=== PATIENT | female | born 1935 | race Caucasian/White ===

== ENCOUNTER → 2017-03-14 | Outpatient (CLI) | payer MEDICARE ==
[2017-03-14 16:11] LABS: HEMATOCRIT 37.5 % (36.0-47.0); HGB HCT DIFFERENCE 1.5; MEAN CORPUSCULAR HEMOGLOBIN 30.6 pg (27.0-33.4); MEAN CORPUSCULAR HGB CONC 34.6 g/dL (32.0-36.0); MEAN CORPUSCULAR VOLUME 89 fl (80-97); RED BLOOD COUNT 4.24 10^6/uL (3.72-5.28); RED CELL DISTRIBUTION WIDTH 13.6 % (11.5-14.0); WHITE BLOOD COUNT 8.2 10^3/uL (4.0-10.5)
== END ==
LOC: OD 14:59
PROVIDERS: ATTEND Specialist
DX: D50.9 Iron deficiency anemia, unspecified (principal); R97.0 Elevated carcinoembryonic antigen [CEA]; R10.9 Unspecified abdominal pain; C25.0 Malignant neoplasm of head of pancreas
CPT/HCPCS: 36415; 82378; 85027

== ENCOUNTER 2017-03-23 09:10 | Day surgery (SDC) | payer MEDICARE ==
--- NOTE | 2017-03-21 14:37 | HISTORY AND PHYSICAL E ---
History and Physical NAME: MARQUIS RIZO : 1935 AGE: 81Y ADMITTED: 03/23/2017 ROOM: The patient presented regarding rectal bleeding, scheduled for colonoscopy. The patient is being followed by [facility]. PAST MEDICAL HISTORY: She has the following problem. She does have a history of adenoma of polyp, allergic rhinitis, ureter calculi, chronic pain, constipation, dementia of old age, reflux, peripheral neuropathy, osteoarthritis. The patient did have solitary pulmonary nodule, history of acute gastric ulcer, H. pylori, diarrhea, mass of the bladder. PAST SURGICAL HISTORY: Cholecystectomy, appendectomy. FAMILY HISTORY: Colon cancer, brain cancer, breast cancer. Brother has Alzheimer's. REVIEW OF SYSTEMS: CONSTITUTIONAL: No fever, no chills. Dictation ends here DICTATING PHYSICIAN: GEORGE GORDILLO M.D. [id number] [id number] PHY#: [id number] ID: [id number] JOB#: [id number] ACCT: [id number] cc:GEORGE GORDILLO M.D. >
--- NOTE | 2017-03-21 14:38 | HISTORY AND PHYSICAL E ---
History and Physical NAME: MARQUIS RIZO : 1935 AGE: 81Y ADMITTED: 03/23/2017 ROOM: REASON FOR ADMISSION: Colonoscopy. HISTORY OF PRESENT ILLNESS: The patient presents with rectal bleeding. Again, patient has multiple medical problems. She is a former smoker. Patient has a history of adenomatous polyp and GI bleed. She did have a Ct scan done in January of this year that showed a left ureteral stent. She did have decreased left-sided hydronephrosis. The patient presented for colon exam and rectal bleeding. I saw her on 03/14, an 81-year-old female with rectal bleeding. PAST MEDICAL HISTORY: *------*, kidney stones, appendectomy. MEDICATIONS: 1. Thyroid. 2. Vitamins. 3. MiraLax. SOCIAL HISTORY: The patient is . REVIEW OF SYSTEMS: CARDIAC: Negative. PULMONARY: Nodule. GASTROINTESTINAL: Reflux, colon polyps. NEUROLOGIC: Peripheral neuropathy. FAMILY HISTORY: Her father of old age, cardiac disease and accident. Her mom had colon cancer. PHYSICAL EXAMINATION: GENERAL: This is an elderly female, pleasant. VITAL SIGNS: Blood pressure 120/70, pulse 70, temp is 98. HEAD, EYES, EARS, NOSE AND THROAT: Normal. ABDOMEN: Soft. NEUROLOGIC: Negative. EXTREMITIES: Patient has peripheral neuropathy and arthritis. CONCLUSION: Rectal bleeding. PLAN: Colonoscopy. Admit to our service. DICTATING PHYSICIAN: GEORGE GORDILLO M.D. [id number] PHY#: [id number] ID: [id number] JOB#: [id number] ACCT: [id number] cc:GEORGE GORDILLO M.D. >
[2017-03-23] MEDS ORDERED: ONDANSETRON HCL INJ/PF 4 MG/2 ML SDV ONE (09:49)
[2017-03-23] MEDS ORDERED: GLYCOPYRROLATE INJ 0.4 MG/2 ML VIAL ONE (09:49)
[2017-03-23] MEDS ORDERED: GLUCAGON,HUMAN RECOMB 1 MG INJ ONE (09:50)
[2017-03-23] MEDS ORDERED: EPINEPHRINE INJ 1 MG/10 ML DISP.SYRIN ONE (09:50)
[2017-03-23] MEDS ORDERED: NALOXONE HCL INJ/PF 0.4 MG/1 ML SDV ONE (09:50)
[2017-03-23] MEDS ORDERED: FLUMAZENIL INJ 0.5 MG/5 ML VIAL ONE (09:50)
[2017-03-23] MEDS: MIDAZOLAM 2 MG/2 ML INJ ONE ×3 (10:28→10:46)
[2017-03-23] MEDS: FENTANYL CITRATE INJ/PF 100 MCG/2 ML AMPUL ONE ×3 (10:30→10:38)
[2017-03-23] MEDS ORDERED: SIMETHICONE 80 MG TAB.CHEW ONE (11:50)
[2017-03-23 12:17] LABS: ABSOLUTE EOSINOPHILS # (AUTO) 0.1 10^3/uL (0.0-0.6); ABSOLUTE LYMPHOCYTES (AUTO) 1.4 10^3/uL (0.5-4.7); ABSOLUTE MONOCYTES (AUTO) 0.9 10^3/uL (0.1-1.4); ABSOLUTE NEUT (AUTO) 7.1 10^3/uL (1.7-8.2); BASOPHILS % (AUTO) 0.4 % (0-2); EOSINOPHILS % (AUTO) 0.8 % (0-6); HEMATOCRIT 34.9 % (36.0-47.0); HEMOGLOBIN 12.3 g/dL (12.0-15.5); LYMPHOCYTES % (AUTO) 14.7 % (13-45); MEAN CORPUSCULAR HEMOGLOBIN 31.4 pg (27.0-33.4); MEAN CORPUSCULAR HGB CONC 35.2 g/dL (32.0-36.0); MEAN CORPUSCULAR VOLUME 89 fl (80-97); MONOCYTES % (AUTO) 9.7 % (3-13); RED BLOOD COUNT 3.91 10^6/uL (3.72-5.28); RED CELL DISTRIBUTION WIDTH 13.7 % (11.5-14.0); SEGMENTED NEUTROPHILS % (AUTO) 74.4 % (42-78); WHITE BLOOD COUNT 9.5 10^3/uL (4.0-10.5)
[2017-03-23 12:28] LABS: IRON 43.2 ug/dL (37-170)
[2017-03-23 13:48] VITALS: BP 133/57
--- NOTE | 2017-03-23 14:25 | DISCHARGE SUMMARY E ---
Discharge Summary NAME: MARQUIS RIZO : 1935 AGE: 81Y ADMITTED: 03/23/2017 DISCHARGED: 03/23/2017 PROCEDURE: Colonoscopy to the cecum. HISTORY AND HOSPITAL COURSE: Patient is 81 and presented with rectal bleeding, multiple medical problems. Underwent colonoscopy today, which shows no evidence of polyps, no bleeding, mild external hemorrhoids. DISCHARGE PLAN: Lab studies. Full liquid diet, advance to bland. No need for followup colonoscopy, except if absolutely clinically indicated. No need for further screening. DICTATING PHYSICIAN: GEORGE GORDILLO M.D. [id number] PHY#: [id number] ID: [id number] JOB#: [id number] ACCT: [id number] cc:GEORGE GORDILLO M.D. >
--- NOTE | 2017-03-23 14:26 | OPERATIVE REPORT E ---
Operative Report NAME: MARQUIS RIZO : 1935 AGE: 81Y DATE OF SURGERY: 03/23/2017 ROOM: PREOPERATIVE DIAGNOSIS: Rectal bleeding. POSTOPERATIVE DIAGNOSIS: External hemorrhoids. Redundant colon. No active bleeding. PROCEDURE: Colonoscopy. SURGEON: GEORGE GORDILLO M.D. ANESTHESIA: Versed 2 mg and Fentanyl 50 mcg. TISSUE REMOVED OR ALTERED: None. DESCRIPTION OF PROCEDURE: Rectal exam: External hemorrhoids, most likely the source of the bleeding. Rectum otherwise normal. Sigmoid very redundant, tortuous, normal. Descending colon normal. Transverse colon tortuous, normal. Ascending colon normal. Cecum normal. No blood. No stool. Very redundant colon. Scope withdrawn cecum, ascending, transverse, descending, sigmoid all the way to the rectum. CONCLUSIONS: No polyps, no cancer, no diverticula. Mild external hemorrhoids. Very redundant colon. Difficult colonoscopy. PLAN: Consider colonoscopy only if absolutely needed with definite clinical indication, otherwise no need for further colonoscopy. The patient is to have CBC. We will keep her on a full liquid diet for a few hours and then advance to soft, low residue. DICTATING PHYSICIAN: GEORGE GORDILLO M.D. [id number] [id number] PHY#: [id number] ID: [id number] JOB#: [id number] ACCT: [id number] cc:GEORGE GORDILLO M.D. >
== END 2017-03-23 12:05 | disposition home or self-care (01) ==
LOC: END 09:10
PROVIDERS: ATTEND Specialist
PROC: 0DJD8ZZ Inspection of Lower Intestinal Tract, Via Natural or Artificial Opening Endoscopic (ICD-10-PCS; principal; 2017-03-23 10:00)
DX: K62.5 Hemorrhage of anus and rectum (principal); K64.4 Residual hemorrhoidal skin tags; Q43.8 Other specified congenital malformations of intestine; Z90.49 Acquired absence of other specified parts of digestive tract; Z80.0 Family history of malignant neoplasm of digestive organs; Z86.010 Personal history of colon polyps; F03.90 Unspecified dementia, unspecified severity, without behavioral disturbance, psychotic disturbance, mood disturbance, and anxiety; M19.90 Unspecified osteoarthritis, unspecified site; G62.9 Polyneuropathy, unspecified
CPT/HCPCS: 45378; 36415; 82607; 83540; 85025; J2250; J3010; J1610; A9270; J2405; G0121; J0171; J2310; J3490

== ENCOUNTER 2017-12-27 11:33 | Emergency (ER) | payer MEDICARE, OTHER ==
[2017-12-27 12:24] LABS: APPEARANCE,URINE TURBID; BILIRUBIN,URINE NEGATIVE (NEGATIVE); COLOR,URINE YELLOW; GLUCOSE, URINE NEGATIVE (NEGATIVE); KETONES,URINE NEGATIVE (NEGATIVE); LEUKOCYTE ESTERASE,URINE LARGE (NEGATIVE); NITRITE,URINE NEGATIVE (NEGATIVE); PROTEIN,URINE 30 mg/dL (NEGATIVE); URINE SPECIFIC GRAVITY 1.015; UROBILINOGEN,URINE NEGATIVE mg/dL (<2.0)
[2017-12-27] MEDS ORDERED: NITROFURANTOIN MONOHYD/M-CRYST 100 MG CAPSULE PO ONE (12:34)
--- NOTE | 2017-12-27 12:39 | ER Document Report ---
ED Medical Screen (RME) - General Chief Complaint: Urinary Problem Stated Complaint: PAINFUL URINATION Time Seen by Provider: 12/27/17 12:12 Mode of Arrival: Ambulatory Information source: Patient Notes: Patient complains of burning sensation during urination. TRAVEL OUTSIDE OF THE [place] IN LAST 30 DAYS: No - HPI Onset: Just prior to arrival Onset/Duration: Sudden Quality of pain: No pain Pain Level: 0 Associated Symptoms: Dysuria Exacerbated by: Denies Relieved by: Denies Recently seen / treated by doctor: No - Related Data Frequency of alcohol use: None Drug Abuse: None Allergies/Adverse Reactions: codeine [Codeine] Allergy (Mild, Verified 12/27/17 11:37) lightheaded Past Medical History - Past Medical History Cardiac Medical History: Denies: Hx Coronary Artery Disease, Hx Heart Attack, Hx Hypertension Pulmonary Medical History: Denies: Hx Asthma, Hx Bronchitis, Hx COPD, Hx Pneumonia Neurological Medical History: Denies: Hx Cerebrovascular Accident, Hx Seizures Endocrine Medical History: Reports: Hx Hypothyroidism Renal/ Medical History: Reports: Hx Kidney Stones. Denies: Hx Peritoneal Dialysis GI Medical History: Denies: Hx Hepatitis, Hx Hiatal Hernia, Hx Ulcer Musculoskeltal Medical History: Reports Hx Arthritis Infectious Medical History: Denies: Hx Hepatitis Past Surgical History: Reports: Hx Appendectomy, Hx Cholecystectomy. Denies: Hx Hysterectomy, Hx Mastectomy, Hx Open Heart Surgery, Hx Pacemaker - Immunizations Hx Diphtheria, Pertussis, Tetanus Vaccination: Yes Influenza Administration Date for 01/2017 - 06/2017 Season: 03/17/17 Review of Systems - Review of Systems Constitutional: denies: Chills, Fever EENT: No symptoms reported Cardiovascular: No symptoms reported Respiratory: denies: Cough, Short of breath Gastrointestinal: No symptoms reported. denies: Abdomen distended, Abdominal pain, Diarrhea, Nausea, Vomiting Genitourinary: No symptoms reported. denies: Burning, Dysuria Female Genitourinary: No symptoms reported. denies: Last menstrual period Musculoskeletal: denies: No symptoms reported, Back pain, Gout, Joint pain Skin: No symptoms reported. denies: Change in color, Change in hair/nails Hematologic/Lymphatic: No symptoms reported Neurological/Psychological: No symptoms reported. denies: Confusion, Dementia, Depression, Anxiety -: Yes All other systems reviewed and negative Physical Exam - Vital signs Vitals: Temp Pulse Resp BP Pulse Ox 97.3 F 72 16 137/57 H 96 12/27/17 11:41 12/27/17 11:41 12/27/17 11:41 12/27/17 11:41 12/27/17 11:41 - General General appearance: Appears well, Alert In distress: None - HEENT Head: Normocephalic, Atraumatic Eyes: Normal Pupils: PERRL - Respiratory Respiratory status: No respiratory distress Chest status: Nontender Breath sounds: Normal Chest palpation: Normal - Cardiovascular Rhythm: Regular Heart sounds: Normal auscultation Murmur: No - Abdominal Inspection: Normal Distension: No distension Bowel sounds: Normal Tenderness: Nontender Organomegaly: No organomegaly - Back Back: Normal, Nontender - Extremities General upper extremity: Normal inspection, Nontender, Normal color, Normal ROM , Normal temperature General lower extremity: Normal inspection, Nontender, Normal color, Normal ROM , Normal temperature, Normal weight bearing. No: Cleveland's sign - Neurological Neuro grossly intact: Yes Cognition: Normal Orientation: AAOx4 [place] Coma Scale Eye Opening: Spontaneous Angus Coma Scale Verbal: Oriented Angus Coma Scale Motor: Obeys Commands [place] Coma Scale Total: 15 Speech: Normal Motor strength normal: LUE, RUE, LLE, RLE Sensory: Normal - Psychological Associated symptoms: Normal affect, Normal mood - Skin Skin Temperature: Warm Skin Moisture: Dry Skin Color: Normal Course - Vital Signs Vital signs: Temp Pulse Resp BP Pulse Ox 97.3 F 72 16 137/57 H 96 12/27/17 11:41 12/27/17 11:41 12/27/17 11:41 12/27/17 11:41 12/27/17 11:41 - Laboratory Laboratory results interpreted by me: 12/27/17 12:10 Urine Protein 30 H Urine Blood LARGE H Ur Leukocyte Esterase LARGE H Urine Ascorbic Acid 20 H - Transfer of Care Notes: 12/27/17 12:51 Urinary tract infection. Doctor's Discharge - Discharge Clinical Impression: UTI (urinary tract infection) Qualifiers: Urinary tract infection type: acute cystitis Hematuria presence: with hematuria Qualified Code(s): N30.01 - Acute cystitis with hematuria Condition: Stable Disposition: HOME, SELF-CARE Additional Instructions: Please follow-up with your primary doctor tomorrow morning. Return to the emergency room if her condition worsens. Prescriptions: Nitrofurantoin Monohyd/M-Cryst [Macrobid 100 mg Capsule] 100 mg PO BID #20 capsule Ondansetron [Zofran Odt 4 mg Tablet] 1 tab PO Q8H PRN #15 tab.rapdis PRN Reason: For Nausea/Vomiting Referrals: ELIZABETH SHIELDS MD [ACTIVE STAFF] - Follow up as needed
[2017-12-27] MEDS ORDERED: PHENAZOPYRIDINE HCL 100 MG TABLET PO ONE (13:06)
[2017-12-27 13:15] VITALS: BP 135/57
== END 2017-12-27 13:11 | disposition home or self-care (01) ==
LOC: ER 11:33
DX: N39.0 Urinary tract infection, site not specified (principal)
CPT/HCPCS: 99283; 81001; A9270 ×2; J3490; J8499

== ENCOUNTER 2018-01-17 09:50 | Emergency (ER) | payer MEDICARE ==
[2018-01-17 09:57] VITALS: BP 175/69
[2018-01-17 12:25] LABS: ABSOLUTE BASOPHILS # (AUTO) 0.1 10^3/uL (0.0-0.2); ABSOLUTE EOSINOPHILS # (AUTO) 0.1 10^3/uL (0.0-0.6); ABSOLUTE LYMPHOCYTES (AUTO) 2.2 10^3/uL (0.5-4.7); ABSOLUTE MONOCYTES (AUTO) 1.2 10^3/uL (0.1-1.4); ABSOLUTE NEUT (AUTO) 7.3 10^3/uL (1.7-8.2); BASOPHILS % (AUTO) 0.6 % (0-2); EOSINOPHILS % (AUTO) 0.6 % (0-6); HEMATOCRIT 41.2 % (36.0-47.0); HEMOGLOBIN 14.1 g/dL (12.0-15.5); LYMPHOCYTES % (AUTO) 20.1 % (13-45); MEAN CORPUSCULAR HEMOGLOBIN 30.6 pg (27.0-33.4); MEAN CORPUSCULAR HGB CONC 34.1 g/dL (32.0-36.0); MEAN CORPUSCULAR VOLUME 90 fl (80-97); MONOCYTES % (AUTO) 10.9 % (3-13); PLATELET COUNT 254 10^3/uL (150-450); RED BLOOD COUNT 4.59 10^6/uL (3.72-5.28); RED CELL DISTRIBUTION WIDTH 13.3 % (11.5-14.0); SEGMENTED NEUTROPHILS % (AUTO) 67.8 % (42-78); TOTAL CELLS COUNTED % (AUTO) 100 %; WHITE BLOOD COUNT 10.8 10^3/uL (4.0-10.5)
[2018-01-17 12:37] LABS: ALANINE AMINOTRANSFERASE 19 U/L (9-52); ALBUMIN 4.2 g/dL (3.5-5.0); ALKALINE PHOSPHATASE 58 U/L (38-126); ANION GAP 10 (5-19); ASPARTATE AMINO TRANSFERASE 23 U/L (14-36); BILIRUBIN,DIRECT 0.4 mg/dL (0.0-0.4); BILIRUBIN,TOTAL 0.6 mg/dL (0.2-1.3); BLOOD UREA NITROGEN 14 mg/dL (7-20); CALCIUM 9.6 mg/dL (8.4-10.2); CARBON DIOXIDE 26 mmol/L (22-30); CHLORIDE 103 mmol/L (98-107); GLUCOSE 131 mg/dL (75-110); POTASSIUM 3.8 mmol/L (3.6-5.0); SODIUM 139.1 mmol/L (137-145)
--- NOTE | 2018-01-17 12:37 | ER Document Report ---
ED General <REGIS ALICIA - Last Filed: 01/17/18 16:20> - General Mode of Arrival: Ambulatory Information source: Patient, Relative TRAVEL OUTSIDE OF THE [place] IN LAST 30 DAYS: No <TREMAYNE PETTY - Last Filed: 01/17/18 16:37> - General Chief Complaint: Psych Problem Stated Complaint: PSYCH PROBLEM Time Seen by Provider: 01/17/18 10:17 Notes: Patient is an 82-year-old female who presents to the emergency department with family complaints of depression. Patient reports that she lives at her son's house in the basement and that there are a lot of family issues. 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 Patient's at bedside reports that patient continues to have angry outbursts and verbally cries out. Patient made a statement this morning of "I want to " according to her . Patient reports that her and her have a good relationship however living with her son has been toxic. Patient denies any suicidal or homicidal ideations. Patient denies any history of diagnosed anxiety, depression or any other psychiatric disorder. Patient has medical history positive for recurrent UTIs, cellulitis, chronic back pain as well as a lithotripsy done for kidney stones. (TREMAYNE PETTY) - Related Data Allergies/Adverse Reactions: codeine [Codeine] Allergy (Mild, Verified 12/27/17 11:37) lightheaded Past Medical History - Social History Smoking Status: Unknown if Ever Smoked Family History: Reviewed & Not Pertinent Patient has suicidal ideation: No Patient has homicidal ideation: No - Past Medical History Cardiac Medical History: Denies: Hx Coronary Artery Disease, Hx Heart Attack, Hx Hypertension Pulmonary Medical History: Denies: Hx Asthma, Hx Bronchitis, Hx COPD, Hx Pneumonia Neurological Medical History: Denies: Hx Cerebrovascular Accident, Hx Seizures Endocrine Medical History: Reports: Hx Hypothyroidism Renal/ Medical History: Reports: Hx Kidney Stones. Denies: Hx Peritoneal Dialysis GI Medical History: Denies: Hx Hepatitis, Hx Hiatal Hernia, Hx Ulcer Musculoskeletal Medical History: Reports Hx Arthritis Infectious Medical History: Denies: Hx Hepatitis Past Surgical History: Reports: Hx Appendectomy, Hx Cholecystectomy. Denies: Hx Hysterectomy, Hx Mastectomy, Hx Open Heart Surgery, Hx Pacemaker - Immunizations Hx Diphtheria, Pertussis, Tetanus Vaccination: Yes <TREMAYNE PETTY - Last Filed: 01/17/18 16:37> Physical Exam <REGIS ALICIA - Last Filed: 01/17/18 16:20> <TREMAYNE PETTY - Last Filed: 01/17/18 16:37> - Vital signs Vitals: Temp Pulse Resp BP Pulse Ox 97.7 F 72 16 175/69 H 100 01/17/18 09:57 01/17/18 09:57 01/17/18 09:57 01/17/18 09:57 01/17/18 09:57 - Notes Notes: PHYSICAL EXAMINATION: GENERAL: Well-appearing, well-nourished and in no acute distress. HEAD: Atraumatic, normocephalic. EYES: Pupils equal round and reactive to light, extraocular movements intact, conjunctiva are normal. ENT: Nares patent, oropharynx clear without exudates. Moist mucous membranes. NECK: Normal range of motion, supple without lymphadenopathy LUNGS: Breath sounds clear to auscultation bilaterally and equal. No wheezes rales or rhonchi. HEART: Regular rate and rhythm without murmurs ABDOMEN: Soft, nontender, nondistended abdomen. No guarding, no rebound. No masses appreciated. Female : No CVA tenderness Musculoskeletal: Normal range of motion, no pitting or edema. No cyanosis. NEUROLOGICAL: Cranial nerves grossly intact. Normal speech, normal gait. Normal sensory, motor exams PSYCH: Normal mood, normal affect. SKIN: Warm, Dry, normal turgor, no rashes or lesions noted. (TREMAYNE PETTY) Course - Laboratory Result Diagrams: 01/17/18 10:22 01/17/18 10:22 <REGIS ALICIA - Last Filed: 01/17/18 16:20> - Laboratory Result Diagrams: 01/17/18 10:22 01/17/18 10:22 <TREMAYNE PETTY - Last Filed: 01/17/18 16:37> - Re-evaluation Re-evalutation: Patient is alert, oriented x4, calm and cooperative. Medical screening workup will be done, patient was placed for consult with psychiatric provider. Patient has no psychiatric history whatsoever. reports patient made the statement that she "wants to " however 20-year-old he states that history of he did not feel she was being serious he felt she was just being frustrated. Psych team has evaluated patient is requesting a head CT. Orders placed. Patient denies any needs at this time and continues to be calm and cooperative. Head CT is negative. CBC, CMP and urinalysis are unremarkable. Awaiting disposition by psychiatric team. (TREMAYNE PETTY) - Vital Signs Vital signs: Temp Pulse Resp BP Pulse Ox 97.7 F 72 16 175/69 H 100 01/17/18 09:57 01/17/18 09:57 01/17/18 09:57 01/17/18 09:57 01/17/18 09:57 - Laboratory Laboratory results interpreted by me: 01/17/18 01/17/18 10:22 10:22 WBC 10.8 H Glucose 131 H Salicylates < 1.0 L Acetaminophen < 10 L Discharge <REGIS ALICIA - Last Filed: 01/17/18 16:20> <TREMAYNE PETTY - Last Filed: 01/17/18 16:37> - Discharge Clinical Impression: Family relationship problem Condition: Stable Disposition: HOME, SELF-CARE Additional Instructions: You have been evaluated by both medical and behavioral health teams and have been deemed appropriate for discharge. You have been prescribed Depakote 500 mg nightly and BuSpar 5 mg twice daily; please take as directed. Is recommended you follow-up with neurology and your primary care provider. You have also been provided integrated family services mobile crisis number to contact if you need crisis intervention. AT ANY TIME, IF YOUR SYMPTOMS CHANGE SIGNIFICANTLY OR WORSEN OR YOU DEVELOP NEW SYMPTOMS, RETURN TO THE EMERGENCY DEPARTMENT IMMEDIATELY FOR RE-EVALUATION. Prescriptions: Divalproex Sodium [Depakote] 500 mg PO QHS #15 tablet. Buspirone HCl [Buspar 5 mg Tablet] 1 tab PO BID #30 tab Referrals: [facility],NO [Primary Care Provider] - Follow up as needed [facility] Team [Outside] - Follow up as needed
[2018-01-17 12:39] LABS: ACETAMINOPHEN < 10 ug/mL (10-30); ALCOHOL < 10 mg/dL (NONE DETECTED); SALICYLATE < 1.0 mg/dL (2.0-20.0)
[2018-01-17 12:50] LABS: APPEARANCE,URINE CLEAR; BILIRUBIN,URINE NEGATIVE (NEGATIVE); COLOR,URINE STRAW; GLUCOSE, URINE NEGATIVE (NEGATIVE); KETONES,URINE NEGATIVE (NEGATIVE); LEUKOCYTE ESTERASE,URINE NEGATIVE (NEGATIVE); NITRITE,URINE NEGATIVE (NEGATIVE); PROTEIN,URINE NEGATIVE (NEGATIVE); URINE SPECIFIC GRAVITY 1.005; UROBILINOGEN,URINE NEGATIVE mg/dL (<2.0)
[2018-01-17 13:03] LABS: URINE AMPHETAMINES SCREEN NEGATIVE; URINE BARBITURATES SCREEN NEGATIVE; URINE BENZODIAZEPINES SCREEN NEGATIVE; URINE COCAINE SCREEN NEGATIVE; URINE MARIJUANA (THC) SCREEN NEGATIVE; URINE METHADONE SCREEN NEGATIVE; URINE PHENCYCLIDINE SCREEN NEGATIVE
--- NOTE | 2018-01-17 15:08 | RADIOLOGY REPORT (SQ) ---
EXAM DESCRIPTION: CT HEAD WITHOUT COMPLETED DATE/TIME: 01/17/2018 2:54 pm REASON FOR STUDY: reported confusion COMPARISON: None. TECHNIQUE: Axial images acquired through the brain without intravenous contrast. Images reviewed wi th bone, brain and subdural windows. Additional sagittal and coronal reconstructions were generated. Images stored on PACS. All CT scanners at this facility use dose modulation, iterative reconstruction, and/or weight based d osing when appropriate to reduce radiation dose to as low as reasonably achievable (ALARA). [facility]: Dose Right [facility]: CareDose [facility]: Dose Right [facility]: Teradose 4D [facility]: Playdom RADIATION DOSE: CT Rad equipment meets quality standard of care and radiation dose reduction techniq ues were employed. CTDIvol: 53.2 mGy. DLP: 1017 mGy-cm. mGy. LIMITATIONS: None. FINDINGS: VENTRICLES: Prominent. CEREBRUM: No masses. No hemorrhage. No midline shift. Areas of low density in the white matter mos t likely due to chronic micro-vascular ischemic change. No evidence for acute infarction. CEREBELLUM: No masses. No hemorrhage. No alteration of density. No evidence for acute infarction. EXTRAAXIAL SPACES: Mild age-related involutional change. No fluid collections. No masses. ORBITS AND GLOBE: No intra- or extraconal masses. Normal contour of globe without masses. CALVARIUM: No fracture. PARANASAL SINUSES: No fluid or mucosal thickening. SOFT TISSUES: No mass or hematoma. OTHER: No other significant finding. IMPRESSION: MILD CHRONIC CHANGES OF ATROPHY AND MICROVASCULAR ISCHEMIA. NO ACUTE PROCESS. EVIDENCE OF ACUTE STROKE: NO. TECHNICAL DOCUMENTATION: JOB ID: [id number] Quality ID # [id number]: Final reports with documentation of one or more dose reduction techniques (e.g., Au tomated exposure control, adjustment of the mA and/or kV according to patient size, use of iterative reconstruction technique) 2010 [employer]- All Rights Reserved Reading location - IP/workstation name: [email or web address]
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
--- NOTE | 2018-01-18 09:09 | EKG REPORT ---
SEVERITY:- BORDERLINE ECG - SINUS RHYTHM BORDERLINE T ABNORMALITIES, ANT-LAT LEADS : Confirmed by: Tori Alvarado 18-Jan-2018 09:08:01
== END 2018-01-17 17:22 | disposition home or self-care (01) ==
LOC: ER 09:50
DX: Z63.79 Other stressful life events affecting family and household (principal); Z88.5 Allergy status to narcotic agent
CPT/HCPCS: 36415; 70450; 80053; 80307; 81001; 85025; 93005; 93010; 99285

== ENCOUNTER 2018-02-22 19:30 | Emergency (ER) | payer MEDICARE, OTHER ==
[2018-02-22 19:35] VITALS: BP 146/63
[2018-02-22 20:25] LABS: APPEARANCE,URINE CLEAR; BILIRUBIN,URINE NEGATIVE (NEGATIVE); COLOR,URINE STRAW; GLUCOSE, URINE NEGATIVE (NEGATIVE); KETONES,URINE NEGATIVE (NEGATIVE); LEUKOCYTE ESTERASE,URINE SMALL (NEGATIVE); NITRITE,URINE NEGATIVE (NEGATIVE); PROTEIN,URINE NEGATIVE (NEGATIVE); URINE SPECIFIC GRAVITY 1.005; UROBILINOGEN,URINE NEGATIVE mg/dL (<2.0)
[2018-02-22 20:34] LABS: ABSOLUTE BASOPHILS # (AUTO) 0.1 10^3/uL (0.0-0.2); ABSOLUTE EOSINOPHILS # (AUTO) 0.3 10^3/uL (0.0-0.6); ABSOLUTE LYMPHOCYTES (AUTO) 2.2 10^3/uL (0.5-4.7); ABSOLUTE MONOCYTES (AUTO) 0.7 10^3/uL (0.1-1.4); ABSOLUTE NEUT (AUTO) 3.1 10^3/uL (1.7-8.2); BASOPHILS % (AUTO) 0.9 % (0-2); EOSINOPHILS % (AUTO) 5.4 % (0-6); HEMATOCRIT 40.8 % (36.0-47.0); HEMOGLOBIN 13.9 g/dL (12.0-15.5); LYMPHOCYTES % (AUTO) 34.2 % (13-45); MEAN CORPUSCULAR HEMOGLOBIN 30.5 pg (27.0-33.4); MEAN CORPUSCULAR HGB CONC 34.1 g/dL (32.0-36.0); MEAN CORPUSCULAR VOLUME 90 fl (80-97); MONOCYTES % (AUTO) 11.2 % (3-13); PLATELET COUNT 246 10^3/uL (150-450); RED BLOOD COUNT 4.56 10^6/uL (3.72-5.28); RED CELL DISTRIBUTION WIDTH 13.8 % (11.5-14.0); SEGMENTED NEUTROPHILS % (AUTO) 48.3 % (42-78); TOTAL CELLS COUNTED % (AUTO) 100 %; WHITE BLOOD COUNT 6.4 10^3/uL (4.0-10.5)
[2018-02-22 20:51] LABS: ALANINE AMINOTRANSFERASE 13 U/L (9-52); ALBUMIN 4.2 g/dL (3.5-5.0); ALKALINE PHOSPHATASE 61 U/L (38-126); ANION GAP 7 (5-19); ASPARTATE AMINO TRANSFERASE 30 U/L (14-36); BILIRUBIN,DIRECT 0.2 mg/dL (0.0-0.4); BILIRUBIN,TOTAL 0.5 mg/dL (0.2-1.3); BLOOD UREA NITROGEN 14 mg/dL (7-20); CALCIUM 9.7 mg/dL (8.4-10.2); CARBON DIOXIDE 32 mmol/L (22-30); CHLORIDE 103 mmol/L (98-107); GLUCOSE 97 mg/dL (75-110); POTASSIUM 4.5 mmol/L (3.6-5.0); TOTAL PROTEIN 6.8 g/dL (6.3-8.2)
--- NOTE | 2018-02-22 22:03 | RADIOLOGY REPORT (SQ) ---
CT ABDOMEN PELVIS WITH IV CONTRAST HISTORY: Right flank pain. COMPARISON: None. TECHNIQUE: CT scan of the abdomen and pelvis with IV contrast. This exam was performed according to our departmental dose-optimization program, which includes automated exposure control, adjustment of the mA and/or kV according to patient size and/or use of iterative reconstruction technique. FINDINGS: Lung bases are clear. No pleural or pericardial effusions. Liver, spleen, pancreas, and adrenal glands are unremarkable. Cholecystectomy clips are present. Kidneys are unremarkable without hydronephrosis. Pelvic organs are unremarkable. Query mild wall thickening of the gastric antrum. No bowel obstruction. Appendix is not well visualized; however there are no inflammatory changes in the right lower quadrant. No free air or free fluid. Abdominal aorta is normal caliber. No acute osseous findings. IMPRESSION: Query mild wall thickening of the gastric antrum. Correlate clinically for gastritis.
--- NOTE | 2018-02-22 22:39 | ER Document Report ---
ED General - General Chief Complaint: Flank Pain Stated Complaint: BACK PAIN Time Seen by Provider: 02/22/18 20:03 Notes: Patient is an 82-year-old female with a past medical history of chronic back pain, nephrolithiasis, and prior surgical history of appendectomy and cholecystectomy who presents with 36 hours of right flank pain. She describes this as an aching, throbbing pain that comes and goes, worsened by movement. She states that as long as she stays still it does not hurt. She states that she has had similar pains in the past related to her low back pain. She has not seen her primary care doctor regarding today's concerns. She denies any bowel or bladder incontinence, urinary retention, difficulty with ambulation, weakness or numbness. No hematuria or dysuria. No dyspnea or pleuritic pain. Denies any significant pain at the time my assessment. TRAVEL OUTSIDE OF THE [place] IN LAST 30 DAYS: No - Related Data Allergies/Adverse Reactions: codeine [Codeine] Allergy (Mild, Verified 12/27/17 11:37) lightheaded Past Medical History - General Information source: Patient - Social History Smoking Status: Never Smoker Frequency of alcohol use: None Drug Abuse: None Lives with: Family Family History: Reviewed & Not Pertinent - Past Medical History Cardiac Medical History: Denies: Hx Coronary Artery Disease, Hx Heart Attack, Hx Hypertension Pulmonary Medical History: Denies: Hx Asthma, Hx Bronchitis, Hx COPD, Hx Pneumonia Neurological Medical History: Denies: Hx Cerebrovascular Accident, Hx Seizures Endocrine Medical History: Reports: Hx Hypothyroidism Renal/ Medical History: Reports: Hx Kidney Stones. Denies: Hx Peritoneal Dialysis GI Medical History: Denies: Hx Hepatitis, Hx Hiatal Hernia, Hx Ulcer Musculoskeletal Medical History: Reports Hx Arthritis Infectious Medical History: Denies: Hx Hepatitis Past Surgical History: Reports: Hx Appendectomy, Hx Cholecystectomy. Denies: Hx Hysterectomy, Hx Mastectomy, Hx Open Heart Surgery, Hx Pacemaker - Immunizations Hx Diphtheria, Pertussis, Tetanus Vaccination: Yes Review of Systems - Review of Systems Notes: Constitutional: Negative for fever. HENT: Negative for sore throat. Eyes: Negative for visual changes. Cardiovascular: Negative for chest pain. Respiratory: Negative for shortness of breath. Gastrointestinal: Negative for abdominal pain, vomiting or diarrhea. Genitourinary: Negative for dysuria. Musculoskeletal: Positive for right flank pain Skin: Negative for rash. Neurological: Negative for headaches, weakness or numbness. 10 point ROS negative except as marked above and in HPI. Physical Exam - Vital signs Vitals: Temp Pulse Resp BP Pulse Ox 97.7 F 69 18 146/63 H 99 02/22/18 19:34 02/22/18 19:34 02/22/18 19:34 02/22/18 19:34 02/22/18 19:34 Interpretation: Normal Notes: PHYSICAL EXAMINATION: GENERAL: Well-appearing, well-nourished and in no acute distress. HEAD: Atraumatic, normocephalic. EYES: Pupils equal round and reactive to light, extraocular movements intact, sclera anicteric, conjunctiva are normal. ENT: nares patent, oropharynx clear without exudates. Moist mucous membranes. NECK: Normal range of motion, supple without lymphadenopathy LUNGS: Breath sounds clear to auscultation bilaterally and equal. No wheezes rales or rhonchi. HEART: Regular rate and rhythm without murmurs ABDOMEN: Soft, nontender, normoactive bowel sounds. No guarding, no rebound. No masses appreciated. Mild right CVA tenderness to palpation. EXTREMITIES: Normal range of motion, no pitting or edema. No cyanosis. NEUROLOGICAL: No focal neurological deficits. Moves all extremities spontaneously and on command. PSYCH: Normal mood, normal affect. SKIN: Warm, Dry, normal turgor, no rashes or lesions noted. Course - Re-evaluation Re-evalutation: 02/22/18 22:37 Patient presents with 36 hours of right flank pain worsened with movement. The patient reports that the pain is effectively not present as long as she is lying still. On exam the patient has tenderness over the right flank but has no midline spinal tenderness, step-offs or deformities. Labs otherwise unremarkable without any evidence of hematuria or pyelonephritis. She has no focal abdominal tenderness of any kind. I do not suspect any acute lethargy pathology based on the otherwise reassuring workup. The patient likely has musculoskeletal origin based on her otherwise reassuring workup. I have emphasized the need for outpatient follow-up and have recommended cautious use of NSAIDs given her advanced age. At this time will discharge with return precautions and follow-up recommendations. Verbal discharge instructions given a the bedside and opportunity for questions given. Medication warnings reviewed. Patient is in agreement with this plan and has verbalized understanding of return precautions and the need for primary care follow-up in the next 24-72 hours. - Vital Signs Vital signs: Temp Pulse Resp BP Pulse Ox 97.7 F 69 18 146/63 H 99 02/22/18 19:34 02/22/18 19:34 02/22/18 19:34 02/22/18 19:34 02/22/18 19:34 - Laboratory Result Diagrams: 02/22/18 20:20 02/22/18 20:20 Laboratory results interpreted by me: 02/22/18 02/22/18 19:58 20:20 Carbon Dioxide 32 H Ur Leukocyte Esterase SMALL H - Diagnostic Test Radiology reviewed: Reports reviewed Discharge - Discharge Clinical Impression: Right flank pain, Musculoskeletal pain Condition: Good Disposition: HOME, SELF-CARE Additional Instructions: Your seen today for pain in your right flank. Your labs and CT scan are normal. They do not suggest a kidney stone or infection of your kidney. I recommend that you take naproxen 500 mg every 12 hours as needed for pain. If you do take naproxen please use it for the shortest duration possible. Take famotidine 20 mg 30 minutes prior to any use of naproxen to help protect your stomach. This medicine can be purchased directly [id number]. You can also purchase lidocaine patches to apply to the affected area. Gentle massage of the area can also help. Please follow-up with your general doctor within the next 24-48 hours. Return to the emergency department immediately if you have worsening of your pain, weakness, numbness, become unable to walk, develop fever, or have any other symptoms that are worrisome to you. Prescriptions: Naproxen 500 mg PO BID #30 tablet Referrals: BUCK ZURITA MD [Primary Care Provider] - Follow up tomorrow
== END 2018-02-22 23:05 | disposition home or self-care (01) ==
LOC: ER 19:30
DX: R10.9 Unspecified abdominal pain (principal); M79.10 Myalgia, unspecified site; G89.29 Other chronic pain; E03.9 Hypothyroidism, unspecified; Z88.6 Allergy status to analgesic agent; Z87.442 Personal history of urinary calculi; Z90.49 Acquired absence of other specified parts of digestive tract
CPT/HCPCS: 36415; 74177; 80053; 81001; 83690; 85025; 87086; 99284

== ENCOUNTER 2018-10-16 02:55 | Emergency (ER) | payer MEDICARE, OTHER ==
[2018-10-16] MEDS ORDERED: ONDANSETRON HCL INJ/PF 4 MG/2 ML SDV IV ONE (04:30)
[2018-10-16] MEDS ORDERED: FENTANYL CITRATE INJ/PF 100 MCG/2 ML AMPUL IV ONE (04:36)
--- NOTE | 2018-10-16 04:41 | ER Document Report ---
ED Neck/Back Problem - General Chief Complaint: Back Pain Stated Complaint: BACK PAIN Time Seen by Provider: 10/16/18 04:13 Primary Care Provider: BUCK ZURITA MD [Primary Care Provider] - Follow up as needed Notes: Patient is a 83-year-old female presents to the emergency department with a chief complaint of right flank pain. Patient states she does see Dr. Gudino for pain management out of [place] for her chronic back pain. Patient states that this pain feels differently. Patient states she has had a kidney stone in the past and needed lithotripsy about 1 year ago and states the symptoms are very similar. Patient states she has not had any abdominal pain. Patient states she did have a normal bowel movement yesterday. Patient states the right flank pain developed yesterday and has continued to worsen. Patient states she sought care as she was uncomfortable and was unable to get any sleep or was unable to get into a position of comfort. Patient states that the pain is constant and sharp in nature. Patient denies injury. Patient states she did see her pain management doctor on Monday and was given a refill on her Ultram, and was also given a cream for her pain. She states that she does have urinary symptoms in which she she feels the urge but only a little bit comes out. She denies fever. Patient denies nausea vomiting or diarrhea. TRAVEL OUTSIDE OF THE [place] IN LAST 30 DAYS: No - Related Data Allergies/Adverse Reactions: codeine [Codeine] Allergy (Mild, Verified 10/16/18 05:59) lightheaded Past Medical History - General Information source: Patient - Social History Smoking Status: Never Smoker Cigarette use (# per day): No Chew tobacco use (# tins/day): No Smoking Education Provided: No Frequency of alcohol use: None Drug Abuse: None Lives with: Family Family History: Reviewed & Not Pertinent - Past Medical History Cardiac Medical History: Reports: None Denies: Hx Coronary Artery Disease, Hx Heart Attack, Hx Hypertension Pulmonary Medical History: Reports: None Denies: Hx Asthma, Hx Bronchitis, Hx COPD, Hx Pneumonia EENT Medical History: Reports: None Neurological Medical History: Reports: None. Denies: Hx Cerebrovascular Accident, Hx Seizures Endocrine Medical History: Reports: Hx Hypothyroidism Renal/ Medical History: Reports: Hx Kidney Stones. Denies: Hx Peritoneal Dialysis Malignancy Medical History: Reports: None GI Medical History: Reports: None. Denies: Hx Hepatitis, Hx Hiatal Hernia, Hx Ulcer Musculoskeletal Medical History: Reports Hx Arthritis Skin Medical History: Reports None Psychiatric Medical History: Reports: None Traumatic Medical History: Reports: None Infectious Medical History: Reports: None. Denies: Hx Hepatitis Past Surgical History: Reports: Hx Appendectomy, Hx Cholecystectomy. Denies: Hx Hysterectomy, Hx Mastectomy, Hx Open Heart Surgery, Hx Pacemaker - Immunizations Hx Diphtheria, Pertussis, Tetanus Vaccination: Yes Review of Systems - Review of Systems Constitutional: No symptoms reported EENT: No symptoms reported Cardiovascular: No symptoms reported Respiratory: No symptoms reported Gastrointestinal: No symptoms reported Genitourinary: See HPI Female Genitourinary: See HPI Musculoskeletal: Back pain Skin: No symptoms reported Hematologic/Lymphatic: No symptoms reported Neurological/Psychological: No symptoms reported Physical Exam - Vital signs Vitals: Temp Pulse Resp BP Pulse Ox 97.7 F 70 20 154/68 H 99 10/16/18 03:02 10/16/18 03:02 10/16/18 03:02 10/16/18 03:02 10/16/18 03:02 Interpretation: Hypertensive - Notes Notes: GENERAL: Well-appearing, well-nourished and in no acute distress. HEAD: Atraumatic, normocephalic. EYES: Pupils equal round and reactive to light, extraocular movements intact, sclera anicteric, conjunctiva are normal. ENT: TMs normal, nares patent, oropharynx clear without exudates. Moist mucous membranes. NECK: Normal range of motion, supple without lymphadenopathy or JVD. LUNGS: Breath sounds clear to auscultation bilaterally and equal. No wheezes rales or rhonchi. HEART: Regular rate and rhythm without murmurs, rubs or gallops. ABDOMEN: Soft, nontender, normoactive bowel sounds. No guarding, no rebound. No masses appreciated. BACK: No cervical, thoracic, lumbar midline tenderness. No saddle anesthesia, normal distal neurovascular exam. Mild CVA tenderness on the right. GENITOURINARY: Deferred. EXTREMITIES: Normal range of motion, no pitting or edema. No clubbing or cyanosis. NEUROLOGICAL: Cranial nerves II through XII grossly intact. Normal speech, normal gait. PSYCH: Normal mood, normal affect. SKIN: Warm, Dry, normal turgor, no rashes or lesions noted. Course - Re-evaluation Re-evalutation: 10/16/18 04:41 Patient sitting upright on stretcher and appears somewhat uncomfortable as she could not find a position of comfort. Patient states she does have a history of chronic back pain but that this seems very similar to when she had a kidney stone previously. Will obtain blood work and a urine specimen and provide patient with pain management. 10/16/18 07:[address] scan result with Dr. Isaura Rocha. She suggests that the patient may be developing a pyelonephritis. I will treat the patient with Keflex appropriately for 10 days. I did discuss this with the patient, and daughter at the bedside. Patient states that she continues to have right flank pain. I will give a dose of antibiotic prior to discharge as well as Ultram. Patient takes Ultram every 4 hours as needed at home for her chronic back pain. Patient has not taken Ultram over the weekend and only took one dose last night. She is nontoxic appearing. Daughter states you are going to follow-up with Dr. Knutson and go by his office once leaving the hospital. - Vital Signs Vital signs: Temp Pulse Resp BP Pulse Ox 97.7 F 70 20 154/68 H 99 10/16/18 03:02 10/16/18 03:02 10/16/18 03:02 10/16/18 03:02 10/16/18 03:02 - Laboratory Result Diagrams: 10/16/18 04:45 10/16/18 04:45 Laboratory results interpreted by me: 10/16/18 10/16/18 04:45 05:42 Total Protein 6.0 L Ur Leukocyte Esterase TRACE H She has trace leukocytes in the urine. - Diagnostic Test Radiology reviewed: Reports reviewed Discharge - Discharge Clinical Impression: Nephrolithiasis Urinary tract infection Qualifiers: Urinary tract infection type: acute pyelonephritis Qualified Code(s): N10 - Acute pyelonephritis Condition: Stable Disposition: HOME, SELF-CARE Instructions: Cephalexin ([facility]), Low Back Pain ([facility]), Urinary Tract Infection ([facility]), Warm Packs ([facility]) Additional Instructions: You are seen in the emergency department today for right flank and right lower back pain. A CT of the abdomen did show small kidney stones bilaterally. You may also have a developing urinary tract infection. I have ordered a urine culture which will result in a few days. In the meantime I will place you on Keflex which is an antibiotic that will treat a urinary tract infection. Your first dose was given in the emergency department. You may take your next dose tonight. Please increase your fluid intake. Please return to the emergency department for worsening pain that is not controlled with the Ultram that you take at home as well as the naproxen that you are prescribed at home. Please return for fevers, nausea or vomiting, diarrhea, severe back pain, numbness or tingling to the lower extremities, inability to urinate or loss of bowel or bladder function or any other concerning signs or symptoms. Urinary Tract Infection Your evaluation indicates that you have a urinary tract infection. This is due to germs growing in the bladder. This is a common problem. This infection usually responds quickly to antibiotics. Your antibiotic should be taken exactly as prescribed. Drink plenty of fluids -- three to four quarts a day. Occasionally, a bladder anesthetic will be prescribed to help stop the feeling of urgency until the antibiotic has a chance to clear the infection. This may cause your urine to be dark orange. Certain urine infections require a culture. If the doctor obtained a culture, the results will be back in two days. You should call to see if a change in treatment is needed. A repeat urinalysis after you finish treatment is often recommended. The physician will let you know if further testing is required. Call the doctor if you develop fever, chills, flank pain, inability to urinate, or blood in the urine. Prescriptions: Cephalexin Monohydrate [Keflex 500 mg Capsule] 500 mg PO BID 10 Days #20 capsule Referrals: BUCK ZURITA MD [Primary Care Provider] - Follow up as needed
[2018-10-16 04:57] LABS: ABSOLUTE BASOPHILS # (AUTO) 0.1 10^3/uL (0.0-0.2); ABSOLUTE EOSINOPHILS # (AUTO) 0.1 10^3/uL (0.0-0.6); ABSOLUTE LYMPHOCYTES (AUTO) 1.5 10^3/uL (0.5-4.7); ABSOLUTE MONOCYTES (AUTO) 0.7 10^3/uL (0.1-1.4); BASOPHILS % (AUTO) 0.8 % (0-2); EOSINOPHILS % (AUTO) 2.2 % (0-6); HEMATOCRIT 37.1 % (36.0-47.0); HEMOGLOBIN 12.9 g/dL (12.0-15.5); LYMPHOCYTES % (AUTO) 23.6 % (13-45); MEAN CORPUSCULAR HEMOGLOBIN 30.9 pg (27.0-33.4); MEAN CORPUSCULAR HGB CONC 34.9 g/dL (32.0-36.0); MEAN CORPUSCULAR VOLUME 89 fl (80-97); MONOCYTES % (AUTO) 11.2 % (3-13); PLATELET COUNT 231 10^3/uL (150-450); RED BLOOD COUNT 4.18 10^6/uL (3.72-5.28); RED CELL DISTRIBUTION WIDTH 13.5 % (11.5-14.0); SEGMENTED NEUTROPHILS % (AUTO) 62.2 % (42-78); TOTAL CELLS COUNTED % (AUTO) 100 %; WHITE BLOOD COUNT 6.5 10^3/uL (4.0-10.5)
[2018-10-16 05:25] LABS: ALANINE AMINOTRANSFERASE 17 U/L (9-52); ALBUMIN 3.8 g/dL (3.5-5.0); ALKALINE PHOSPHATASE 56 U/L (38-126); ANION GAP 5 (5-19); ASPARTATE AMINO TRANSFERASE 24 U/L (14-36); BILIRUBIN,DIRECT 0.3 mg/dL (0.0-0.4); BILIRUBIN,TOTAL 0.4 mg/dL (0.2-1.3); BLOOD UREA NITROGEN 19 mg/dL (7-20); CALCIUM 8.9 mg/dL (8.4-10.2); CARBON DIOXIDE 29 mmol/L (22-30); CHLORIDE 106 mmol/L (98-107); GLUCOSE 94 mg/dL (75-110); POTASSIUM 4.7 mmol/L (3.6-5.0); SODIUM 140.2 mmol/L (137-145)
[2018-10-16 06:18] LABS: APPEARANCE,URINE CLEAR; BILIRUBIN,URINE NEGATIVE (NEGATIVE); COLOR,URINE STRAW; GLUCOSE, URINE NEGATIVE (NEGATIVE); KETONES,URINE NEGATIVE (NEGATIVE); LEUKOCYTE ESTERASE,URINE TRACE (NEGATIVE); NITRITE,URINE NEGATIVE (NEGATIVE); PROTEIN,URINE NEGATIVE (NEGATIVE); UROBILINOGEN,URINE NEGATIVE mg/dL (<2.0)
--- NOTE | 2018-10-16 06:56 | RADIOLOGY REPORT (SQ) ---
CT abdomen and pelvis without contrast on 10/16/2018 at 6:12 AM CLINICAL INDICATION: Right-sided back pain TECHNIQUE: Multiple axial images are obtained throughout the abdomen and pelvis without the administration of contrast. This exam was performed according to our departmental dose-optimization program, which includes automated exposure control, adjustment of the mA and/or kV according to patient size and/or use of iterative reconstruction technique. Total DLP is 255.65 mGy*cm. COMPARISON: 02/22/2018 FINDINGS: Abdomen: There is minimal bibasilar atelectasis. The patient is status post cholecystectomy. There are small nonobstructing bilateral renal stones. There is a stable calcification in the right retroperitoneum that appears to be adjacent to the right proximal ureter and consistent with phlebolith. There are no ureteral stones and no hydronephrosis. The unenhanced solid abdominal organs are otherwise unremarkable. Vascular calcifications are noted. There is no abdominal adenopathy. There is no free fluid or free air within the abdomen. The abdominal portion of the GI tract is unremarkable. Pelvis: There is no free fluid in the pelvis. Pelvic organs appear unremarkable by unenhanced CT. Small focus of air in the bladder is likely related to recent catheterization but please correlate clinically to exclude infection as a cause. There is no pelvic adenopathy. The appendix is not definitely visualized but no pericecal inflammatory changes are noted. The pelvic portion of the GI tract is unremarkable. Degenerative changes are noted in the spine. There is grade 1 spondylolisthesis at L4-5 secondary to degenerative facet disease. IMPRESSION: 1. Bilateral nephrolithiasis with no ureteral stones and no hydronephrosis. 2. Small focus of air in the bladder most likely related to recent catheterization but please correlate clinically and verify recent instrumentation to exclude infection from gas producing organism as the cause.
[2018-10-16] MEDS ORDERED: TRAMADOL HCL 50 MG TABLET PO ONE (07:49)
[2018-10-16] MEDS ORDERED: CEPHALEXIN 500 MG CAPSULE PO ONE (07:49)
[2018-10-16 08:33] VITALS: BP 118/79
== END 2018-10-16 08:32 | disposition home or self-care (01) ==
LOC: ER 02:55
DX: N10 Acute pyelonephritis (principal); N20.0 Calculus of kidney; M54.9 Dorsalgia, unspecified; G89.29 Other chronic pain; Z88.5 Allergy status to narcotic agent
CPT/HCPCS: 99284; 96374; 96375; 36415; 87086; 85025; 80053; 81001; 74176; A9270 ×2; J3010; J2405

== ENCOUNTER 2019-03-25 07:11 | Emergency (ER) | payer MEDICARE, OTHER ==
--- NOTE | 2019-03-25 07:29 | ER Document Report ---
ED General - General Chief Complaint: Abdominal Pain Stated Complaint: ABDOMINAL PAIN,NAUSEA Time Seen by Provider: 03/25/19 07:29 Primary Care Provider: BUCK ZURITA MD [Primary Care Provider] - Follow up as needed TRAVEL OUTSIDE OF THE [place] IN LAST 30 DAYS: No - HPI Notes: 83 wf w/ [facility]h per below reviewed w/ pt and on [facility] chart, p/w 2 days lower cerampy abd pn. says hasn't radiated/migrated. gradual in onset, not worsened by food. she hasn't vomited. has been passing gas ok, but feels bowel movements less frequent and she did feel significantly less crampy pain s/p having a larger volume solid stool finally prior to coming in to the ED. still is mild crampiness. denies new vb. denies urianry sx, no retention, incontinence or frequency or dysuria. no back pain. otherwise no falls, no changfe in meds. no brbpr or melena. - Related Data Allergies/Adverse Reactions: codeine [Codeine] Allergy (Mild, Verified 03/25/19 07:32) lightheaded Past Medical History - General Information source: Patient, Relative - [facility] - Social History Smoking Status: Never Smoker Family History: Reviewed & Not Pertinent - Past Medical History Cardiac Medical History: Denies: Hx Coronary Artery Disease, Hx Heart Attack, Hx Hypertension Pulmonary Medical History: Denies: Hx Asthma, Hx Bronchitis, Hx COPD, Hx Pneumonia Neurological Medical History: Denies: Hx Cerebrovascular Accident, Hx Seizures Endocrine Medical History: Reports: Hx Hypothyroidism Renal/ Medical History: Reports: Hx Kidney Stones. Denies: Hx Peritoneal Dialysis GI Medical History: Denies: Hx Hepatitis, Hx Hiatal Hernia, Hx Ulcer Musculoskeletal Medical History: Reports Hx Arthritis Infectious Medical History: Denies: Hx Hepatitis Past Surgical History: Reports: Hx Appendectomy, Hx Cholecystectomy. Denies: Hx Hysterectomy, Hx Mastectomy, Hx Open Heart Surgery, Hx Pacemaker - Immunizations Hx Diphtheria, Pertussis, Tetanus Vaccination: Yes Review of Systems - Review of Systems Constitutional: No symptoms reported EENT: No symptoms reported Cardiovascular: No symptoms reported Respiratory: No symptoms reported Gastrointestinal: See HPI Genitourinary: No symptoms reported Female Genitourinary: No symptoms reported Musculoskeletal: No symptoms reported Skin: No symptoms reported Hematologic/Lymphatic: No symptoms reported Neurological/Psychological: No symptoms reported Physical Exam - Vital signs Vitals: Temp Pulse Resp BP Pulse Ox 97.5 F 78 20 130/56 H 100 03/25/19 07:29 03/25/19 07:29 03/25/19 07:29 03/25/19 07:29 03/25/19 07:29 Interpretation: Normal - General General appearance: Appears well, Alert - HEENT Head: Normocephalic, Atraumatic Eyes: Normal Pupils: PERRL - Respiratory Respiratory status: No respiratory distress Chest status: Nontender Breath sounds: Normal Chest palpation: Normal - Cardiovascular Rhythm: Regular Heart sounds: Normal auscultation Murmur: No - Abdominal Inspection: Normal. No: Obese Distension: No distension. No: Distended bladder Bowel sounds: Normal Tenderness: Nontender. No: McBurney's point, Ornelas's sign, Guarding, Rebound Organomegaly: No organomegaly - Rectal Stool: Heme negative Hemorrhoids: External - non-thromboses, 2 ext hemorrhoids. brown soft stool in vault w/o ttp/masses internally, no distal fecal impaction - Back Back: Normal, Nontender - Extremities General upper extremity: Normal inspection, Nontender, Normal color, Normal ROM, Normal temperature General lower extremity: Normal inspection, Nontender, Normal color, Normal ROM, Normal temperature, Normal weight bearing. No: Cleveland's sign - Neurological Neuro grossly intact: Yes Cognition: Normal Orientation: AAOx4 Archer Coma Scale Eye Opening: Spontaneous Angus Coma Scale Verbal: Oriented Archer Coma Scale Motor: Obeys Commands Angus Coma Scale Total: 15 Speech: Normal Motor strength normal: LUE, RUE, LLE, RLE Sensory: Normal - Psychological Associated symptoms: Normal affect, Normal mood - Skin Skin Temperature: Warm Skin Moisture: Dry Skin Color: Normal Course - Re-evaluation Re-evalutation: 03/25/19 21:18 pt given po acetamimnophen. pt's serial abd exams remained benign and her vss. reviewed labs, observed pt in ed. pt did have some blood in urine no evidence uti, is on daily macrobid. she and understand plan for f/u w/ reg daughter, and return precautions and red flag sx and sz for which she should seek med attention sooner. d/c feelign well pain gone w/ ambulatory. 03/25/19 21:20 03/25/19 21:20 - Vital Signs Vital signs: Temp Pulse Resp BP Pulse Ox 98.1 F 76 18 164/79 H 97 03/25/19 10:54 03/25/19 10:54 03/25/19 10:54 03/25/19 10:54 03/25/19 10:54 - Laboratory Result Diagrams: 03/25/19 07:30 03/25/19 07:30 Laboratory results interpreted by me: 03/25/19 03/25/19 03/25/19 07:30 07:30 08:27 Lymph % (Auto) 10.7 L Seg Neutrophils % 80.7 H Glucose 114 H Urine Blood LARGE H Discharge - Discharge Clinical Impression: Abdominal pain Condition: Fair Disposition: HOME, SELF-CARE Additional Instructions: Today in the emergency department your abdomen was soft and examination was within normal limits. Your labs were within normal limits and I have printed them out for you here your kidney function looks good and your electrolytes look good. Your urine had some blood in it I also performed a rectal exam and saw you had no bleeding from the vagina or rectum only some external hemorrhoids. Your urine looks clear though on your samples here in the emergency department. I think this could be related to constipation since your pain improved with the bowel movement and now has resolved. Please watch though for any fevers return of severe posterior persistent pain troubles with urinating, vomiting or nausea that severe and persistent. Otherwise he can follow-up with your usual doctors and also discuss your your mood and stress since you are going through a lot with her son right now. Prescriptions: Polyethylene Glycol 3350 [Miralax] 1 cap PO DAILY #527 powder Referrals: BUCK ZURITA MD [Primary Care Provider] - Follow up as needed
[2019-03-25 07:48] LABS: ABSOLUTE BASOPHILS # (AUTO) 0.1 10^3/uL (0.0-0.2); ABSOLUTE LYMPHOCYTES (AUTO) 0.9 10^3/uL (0.5-4.7); ABSOLUTE MONOCYTES (AUTO) 0.6 10^3/uL (0.1-1.4); ABSOLUTE NEUT (AUTO) 6.5 10^3/uL (1.7-8.2); BASOPHILS % (AUTO) 0.8 % (0-2); EOSINOPHILS % (AUTO) 0.5 % (0-6); HEMATOCRIT 40.7 % (36.0-47.0); HEMOGLOBIN 14.1 g/dL (12.0-15.5); LYMPHOCYTES % (AUTO) 10.7 % (13-45); MEAN CORPUSCULAR HEMOGLOBIN 31.6 pg (27.0-33.4); MEAN CORPUSCULAR HGB CONC 34.5 g/dL (32.0-36.0); MEAN CORPUSCULAR VOLUME 91 fl (80-97); MONOCYTES % (AUTO) 7.3 % (3-13); PLATELET COUNT 241 10^3/uL (150-450); RED BLOOD COUNT 4.45 10^6/uL (3.72-5.28); RED CELL DISTRIBUTION WIDTH 12.7 % (11.5-14.0); SEGMENTED NEUTROPHILS % (AUTO) 80.7 % (42-78); TOTAL CELLS COUNTED % (AUTO) 100 %; WHITE BLOOD COUNT 8.1 10^3/uL (4.0-10.5)
[2019-03-25 08:12] LABS: ALBUMIN 4.2 g/dL (3.5-5.0); ALKALINE PHOSPHATASE 67 U/L (38-126); ANION GAP 8 (5-19); ASPARTATE AMINO TRANSFERASE 36 U/L (14-36); BILIRUBIN,DIRECT 0.1 mg/dL (0.0-0.4); BILIRUBIN,TOTAL 0.6 mg/dL (0.2-1.3); BLOOD UREA NITROGEN 15 mg/dL (7-20); CALCIUM 9.5 mg/dL (8.4-10.2); CARBON DIOXIDE 27 mmol/L (22-30); CHLORIDE 104 mmol/L (98-107); GLUCOSE 114 mg/dL (75-110); POTASSIUM 4.1 mmol/L (3.6-5.0); TOTAL PROTEIN 6.7 g/dL (6.3-8.2)
[2019-03-25 08:39] LABS: APPEARANCE,URINE CLEAR; BILIRUBIN,URINE NEGATIVE (NEGATIVE); COLOR,URINE YELLOW; GLUCOSE, URINE NEGATIVE (NEGATIVE); KETONES,URINE NEGATIVE (NEGATIVE); LEUKOCYTE ESTERASE,URINE NEGATIVE (NEGATIVE); NITRITE,URINE NEGATIVE (NEGATIVE); PROTEIN,URINE NEGATIVE (NEGATIVE); UROBILINOGEN,URINE NEGATIVE mg/dL (<2.0)
[2019-03-25] MEDS ORDERED: ACETAMINOPHEN 325 MG TABLET PO ONE (08:52)
[2019-03-25 10:55] VITALS: BP 164/79
== END 2019-03-25 11:00 | disposition home or self-care (01) ==
LOC: ER 07:11
DX: R10.30 Lower abdominal pain, unspecified (principal); R31.9 Hematuria, unspecified; K64.4 Residual hemorrhoidal skin tags; Z79.2 Long term (current) use of antibiotics; Z87.442 Personal history of urinary calculi; Z90.49 Acquired absence of other specified parts of digestive tract; Z88.6 Allergy status to analgesic agent; Z88.5 Allergy status to narcotic agent
CPT/HCPCS: 99284; 51701; 36415; 83690; 85025; 80053; 81001; A9270

== ENCOUNTER 2019-07-05 07:44 | Emergency (ER) | payer MEDICARE, OTHER ==
[2019-07-05 07:50] VITALS: BP 126/73
[2019-07-05 08:38] LABS: APPEARANCE,URINE CLOUDY; BILIRUBIN,URINE NEGATIVE (NEGATIVE); COLOR,URINE YELLOW; GLUCOSE, URINE NEGATIVE (NEGATIVE); KETONES,URINE NEGATIVE (NEGATIVE); PROTEIN,URINE 30 mg/dL (NEGATIVE); URINE SPECIFIC GRAVITY 1.009; UROBILINOGEN,URINE NEGATIVE mg/dL (<2.0)
[2019-07-05] MEDS ORDERED: CEFTRIAXONE INJ 1000 MG VIAL IM ONE (08:43)
[2019-07-05] MEDS ORDERED: LIDOCAINE 1% INJ-PF (10 MG/ML) 30 ML SDV INJ ONE (08:43)
--- NOTE | 2019-07-05 08:48 | ER Document Report ---
HPI - HPI Time Seen by Provider: 07/05/19 08:23 Pain Level: 5 Notes: Patient is an 83-year-old female with no significant past medical history aside from UTIs presents complaining of urinary burning over the past couple days. Patient states that she was on Keflex about 10 days ago and took a 5-day prescription which worked really well for her, but symptoms started back up after she finished the antibiotics. She is otherwise feeling well and is able to eat and drink without difficulty. She is having normal bowel movements. Denies drug allergies to antibiotics. Denies any headache, fever, neck pain, URI, sore throat, chest pain, palpitations, syncope, cough, shortness of breath, wheeze, dyspnea, abdominal pain, nausea/vomiting/diarrhea, back pain, or rash. - ROS Systems Reviewed and Negative: Yes All other systems reviewed and negative - URINARY Urinary: REPORTS: Dysuria - REPRODUCTIVE Reproductive: DENIES: : Past Medical History - Social History Smoking Status: Never Smoker Chew tobacco use (# tins/day): No Frequency of alcohol use: None Drug Abuse: None Family History: Reviewed & Not Pertinent Patient has suicidal ideation: No Patient has homicidal ideation: No - Past Medical History Cardiac Medical History: Denies: Hx Coronary Artery Disease, Hx Heart Attack, Hx Hypertension Pulmonary Medical History: Denies: Hx Asthma, Hx Bronchitis, Hx COPD, Hx Pneumonia Neurological Medical History: Denies: Hx Cerebrovascular Accident, Hx Seizures Endocrine Medical History: Reports: Hx Hypothyroidism Renal/ Medical History: Reports: Hx Kidney Stones. Denies: Hx Peritoneal Dialysis GI Medical History: Denies: Hx Hepatitis, Hx Hiatal Hernia, Hx Ulcer Musculoskeletal Medical History: Reports Hx Arthritis Infectious Medical History: Denies: Hx Hepatitis Past Surgical History: Reports: Hx Appendectomy, Hx Cholecystectomy. Denies: Hx Hysterectomy, Hx Mastectomy, Hx Open Heart Surgery, Hx Pacemaker - Immunizations Hx Diphtheria, Pertussis, Tetanus Vaccination: Yes Vertical Provider Document - CONSTITUTIONAL Agree With Documented VS: Yes Notes: PHYSICAL EXAMINATION: GENERAL: Well-appearing, well-nourished and in no acute distress. HEAD: Atraumatic, normocephalic. EYES: Pupils equal round and reactive to light, extraocular movements intact, sclera anicteric, conjunctiva are normal. ENT: Nares patent and without discharge. oropharynx clear without exudates. No tonsilar hypertrophy or erythema. Moist mucous membranes. NECK: Normal range of motion, supple without lymphadenopathy LUNGS: Breath sounds clear to auscultation bilaterally and equal. No wheezes rales or rhonchi. HEART: Regular rate and rhythm without murmurs, rubs, gallops. ABDOMEN: Soft, nontender, nondistended abdomen. No guarding, no rebound. Normal bowel sounds present. No CVA tenderness bilaterally. Musculoskeletal: FROM to passive/active. Strength 5+/5. Extremities: No cyanosis, clubbing, or edema b/l. Peripheral pulses 2+. Ca pillary refill less than 3 seconds. NEUROLOGICAL: Normal speech, normal gait. PSYCH: Normal mood, normal affect. SKIN: Warm, Dry, normal turgor, no rashes or lesions noted. - INFECTION CONTROL TRAVEL OUTSIDE OF THE [place] IN LAST 30 DAYS: No Course - Re-evaluation Re-evalutation: 07/05/19 08:46 Patient is an afebrile, well-hydrated, 83-year-old female who presents to the ED with an acute UTI. Vitals are acceptable without any significant tachycardia, tachypnea, or hypoxia. PE is otherwise unremarkable. Patient's abdomen is soft and nontender. She has no CVA tenderness bilaterally. See urinalysis results. Urine culture is pending. HCG negative. No other labs or imaging warranted at this time based on H&P. Pt given rocephin IM today. Low suspicion/risk for acute appendicitis, bowel obstruction, acute cholecystitis, acute cholangitis, perforated diverticulitis, incarcerated hernia, pancreatitis, perforated ulcer, peritonitis, sepsis, pelvic inflammatory disease, or other systemic emergent condition at this time. Patient is aware that her condition can change from initial presentation and she needs to monitor symptoms closely and seek medical attention if any acute changes. I will send her home with a prescription for Keflex. Conservative measures otherwise for symptoms. Recheck with your PCM in 3-5 days. Consider consult with a Urologist. Return to the ED with any worsening/concerning symptoms otherwise as reviewed in discharge. Patient is in agreement. - Vital Signs Vital signs: Temp Pulse Resp BP Pulse Ox 97.9 F 75 16 126/73 H 98 07/05/19 07:48 07/05/19 07:48 07/05/19 07:48 07/05/19 07:48 07/05/19 07:48 - Laboratory Laboratory results interpreted by me: 07/05/19 08:20 Urine Protein 30 H Urine Blood LARGE H Leukocyte Esterase Rfl LARGE H Discharge - Discharge Clinical Impression: Acute UTI (urinary tract infection) Condition: Stable Disposition: HOME, SELF-CARE Instructions: Urinary Tract Infection ([facility]), Cephalexin ([facility]) Additional Instructions: Push fluids (i.e. water, cranberry juice) Proper hygenic technique Keep the skin clean Tylenol/ibuprofen as needed May use over the counter AZO for burning with urination Take medications as directed F/u with your PCM in 3-5 days for a recheck Consider consult with a Urologist for ongoing/worsening symptoms. Return to the ED with any worsening symptoms and/or development of fever, headache, chest pain, palpitations, syncope, shortness of breath, trouble breathing, abdominal pain, n/v/d, blood in stool/urine, loss of control of bowel/bladder, urinary retention, or other worsening symptoms that are concerning to you. Prescriptions: Cephalexin Monohydrate [Keflex 500 mg Capsule] 500 mg PO TID #21 capsule Forms: Elevated Blood Pressure Referrals: BUCK ZURITA MD [Primary Care Provider] - Follow up as needed PENDING SALE TO [facility] [Provider Group] - Follow up as needed
== END 2019-07-05 09:12 | disposition home or self-care (01) ==
LOC: ER 07:44
DX: N39.0 Urinary tract infection, site not specified (principal); Z87.440 Personal history of urinary (tract) infections; Z90.49 Acquired absence of other specified parts of digestive tract
CPT/HCPCS: 99283; 96372; 51701; 87086; 87088; 81001; 87186; J3490; J0696

== ENCOUNTER 2019-09-04 06:18 | Emergency (ER) | payer MEDICARE, OTHER ==
[2019-09-04 08:18] VITALS: BP 154/67
[2019-09-04] MEDS ORDERED: ACETAMINOPHEN 325 MG TABLET PO ONE (08:55)
[2019-09-04] MEDS ORDERED: CYCLOBENZAPRINE HCL 10 MG TABLET PO ONE (08:55)
--- NOTE | 2019-09-04 08:59 | ER Document Report ---
HPI - HPI Patient complains to provider of: Left arm pain Time Seen by Provider: 09/04/19 08:41 Onset: Yesterday Onset/Duration: Gradual Quality of pain: Achy Pain Level: 3 Context: Patient states she was helping to clean a house wiping down the top of the refrigerator yesterday. Patient states that she may have overdone it causing her left arm to become painful. Patient complains of left arm pain. Patient states pain is worse with range of motion. Patient denies any traumatic injury. Patient denies any chest pain or shortness of breath. Associated Symptoms: Other - Left arm pain Exacerbated by: Movement Relieved by: Remaining still Similar symptoms previously: No Recently seen / treated by doctor: No - ROS ROS below otherwise negative: Yes Systems Reviewed and Negative: Yes All other systems reviewed and negative - CONSTITUTIONAL Constitutional: DENIES: Fever, Chills - NEURO Neurology: DENIES: Weakness - CARDIOVASCULAR Cardiovascular: DENIES: Chest pain - RESPIRATORY Respiratory: DENIES: Trouble Breathing, Coughing - GASTROINTESTINAL Gastrointestinal: DENIES: Nausea - REPRODUCTIVE Reproductive: DENIES: : - MUSCULOSKELETAL Musculoskeletal: REPORTS: Extremity pain - left arm. DENIES: Swelling - DERM Skin Color: Normal Skin Problems: None Past Medical History - General Information source: Patient - Social History Smoking Status: Never Smoker Chew tobacco use (# tins/day): No Frequency of alcohol use: None Drug Abuse: None Occupation: None Lives with: Family Family History: Reviewed & Not Pertinent Patient has homicidal ideation: No - Past Medical History Cardiac Medical History: Denies: Hx Coronary Artery Disease, Hx Heart Attack, Hx Hypertension Pulmonary Medical History: Denies: Hx Asthma, Hx Bronchitis, Hx COPD, Hx Pneumonia Neurological Medical History: Denies: Hx Cerebrovascular Accident, Hx Seizures Endocrine Medical History: Reports: Hx Hypothyroidism Renal/ Medical History: Reports: Hx Kidney Stones. Denies: Hx Peritoneal Dialysis GI Medical History: Denies: Hx Hepatitis, Hx Hiatal Hernia, Hx Ulcer Musculoskeletal Medical History: Reports Hx Arthritis Infectious Medical History: Denies: Hx Hepatitis Past Surgical History: Reports: Hx Appendectomy, Hx Cholecystectomy - Immunizations Hx Diphtheria, Pertussis, Tetanus Vaccination: Yes Vertical Provider Document - CONSTITUTIONAL Agree With Documented VS: Yes Exam Limitations: No Limitations General Appearance: WD/WN, No Apparent Distress - INFECTION CONTROL TRAVEL OUTSIDE OF THE [place] IN LAST 30 DAYS: No - HEENT HEENT: Atraumatic, Normocephalic - NECK Neck: Normal Inspection, Supple - RESPIRATORY Respiratory: Breath Sounds Normal, No Respiratory Distress - CARDIOVASCULAR Cardiovascular: Regular Rate, Regular Rhythm Pulses: Normal: Radial - MUSCULOSKELETAL/EXTREMETIES Musculoskeletal/Extremeties: MAEW, FROM, Tender - Tenderness to left bicep, worse with palpation and flexion of the left elbow, soft muscle compartments, no edema, no calor, No Edema. negative: Eccymosis - NEURO Level of Consciousness: Awake, Alert, Appropriate Motor/Sensory: No Motor Deficit, No Sensory Deficit - DERM Integumentary: Warm, Dry, No Rash Course - Re-evaluation Re-evalutation: 09/04/19 08:56 Patient with left bicep tenderness, no palpable deformity. Patient without any chest pain or dyspnea symptoms. Patient does report cleaning on top of the refrigerator recently and states that she may have overdone it. Patient encouraged to return as needed for any new or worsening symptoms. - Vital Signs Vital signs: Temp Pulse Resp BP Pulse Ox 97.5 F 67 16 154/67 H 100 09/04/19 08:25 09/04/19 08:16 09/04/19 08:16 09/04/19 08:16 09/04/19 08:16 Discharge - Discharge Clinical Impression: Muscle strain Condition: Stable Disposition: HOME, SELF-CARE Instructions: Acetaminophen, Muscle Relaxers ([facility]), Muscle Strain ([facility]) Additional Instructions: Return immediately for any new or worsening symptoms Followup with your primary care provider, call tomorrow to make a followup appointment Prescriptions: Cyclobenzaprine HCl 5 mg PO TID PRN #12 tablet PRN Reason: Referrals: BUCK ZURITA MD [Primary Care Provider] - Follow up tomorrow
== END 2019-09-04 09:16 | disposition home or self-care (01) ==
LOC: ER 06:18
DX: S46.912A Strain of unspecified muscle, fascia and tendon at shoulder and upper arm level, left arm, initial encounter (principal); M79.602 Pain in left arm; X58.XXXA Exposure to other specified factors, initial encounter
CPT/HCPCS: 99283; A9270 ×2

== ENCOUNTER 2019-09-21 17:50 | Emergency (ER) | payer MEDICARE, OTHER ==
[2019-09-21 17:57] VITALS: BP 172/67
--- NOTE | 2019-09-21 18:09 | ER Document Report ---
ED Medical Screen (RME) - General Chief Complaint: Back Pain Stated Complaint: BACK PAIN Time Seen by Provider: 09/21/19 17:56 Primary Care Provider: BUCK ZURITA MD [Primary Care Provider] - Follow up as needed Information source: Patient Notes: This is a 84-year-old woman who states she has discomfort to her left clavicle with radiation to her chest wall which is been ongoing for a couple of days. She states that she feels like she strained it but she does not recall a specific incident which would have done so. I greeted and performed a rapid initial assessment of this patient. Comprehensive ED assessment and evaluation of the patient, analysis of test results and completion of the medical decision making process will be conducted by additional ED providers. TRAVEL OUTSIDE OF THE [place] IN LAST 30 DAYS: No - Related Data Allergies/Adverse Reactions: codeine [Codeine] Allergy (Mild, Verified 07/05/19 07:53) lightheaded Past Medical History - Past Medical History Cardiac Medical History: Denies: Hx Coronary Artery Disease, Hx Heart Attack, Hx Hypertension Pulmonary Medical History: Denies: Hx Asthma, Hx Bronchitis, Hx COPD, Hx Pneumonia Neurological Medical History: Denies: Hx Cerebrovascular Accident, Hx Seizures Endocrine Medical History: Reports: Hx Hypothyroidism Renal/ Medical History: Reports: Hx Kidney Stones. Denies: Hx Peritoneal Dialysis GI Medical History: Denies: Hx Hepatitis, Hx Hiatal Hernia, Hx Ulcer Musculoskeltal Medical History: Reports Hx Arthritis Infectious Medical History: Denies: Hx Hepatitis Past Surgical History: Reports: Hx Appendectomy, Hx Cholecystectomy. Denies: Hx Hysterectomy, Hx Mastectomy, Hx Open Heart Surgery, Hx Pacemaker - Immunizations Hx Diphtheria, Pertussis, Tetanus Vaccination: Yes Physical Exam - Vital signs Vitals: Temp Pulse Resp BP Pulse Ox 97.8 F 70 14 172/67 H 97 09/21/19 17:55 09/21/19 17:55 09/21/19 17:55 09/21/19 17:55 09/21/19 17:55 Course - Vital Signs Vital signs: Temp Pulse Resp BP Pulse Ox 97.8 F 70 14 172/67 H 97 09/21/19 17:55 09/21/19 17:55 09/21/19 17:55 09/21/19 17:55 09/21/19 17:55 Doctor's Discharge - Discharge Referrals: BUCK ZURITA MD [Primary Care Provider] - Follow up as needed
[2019-09-21 18:43] LABS: ABSOLUTE BASOPHILS # (AUTO) 0.1 10^3/uL (0.0-0.2); ABSOLUTE EOSINOPHILS # (AUTO) 0.2 10^3/uL (0.0-0.6); ABSOLUTE LYMPHOCYTES (AUTO) 2.4 10^3/uL (0.5-4.7); ABSOLUTE MONOCYTES (AUTO) 0.7 10^3/uL (0.1-1.4); ABSOLUTE NEUT (AUTO) 2.6 10^3/uL (1.7-8.2); EOSINOPHILS % (AUTO) 2.9 % (0-6); HEMATOCRIT 41.2 % (36.0-47.0); HEMOGLOBIN 14.1 g/dL (12.0-15.5); MEAN CORPUSCULAR HEMOGLOBIN 30.8 pg (27.0-33.4); MEAN CORPUSCULAR HGB CONC 34.1 g/dL (32.0-36.0); MEAN CORPUSCULAR VOLUME 90 fl (80-97); PLATELET COUNT 273 10^3/uL (150-450); RED BLOOD COUNT 4.56 10^6/uL (3.72-5.28); SEGMENTED NEUTROPHILS % (AUTO) 43.1 % (42-78); TOTAL CELLS COUNTED % (AUTO) 100 %; WHITE BLOOD COUNT 5.9 10^3/uL (4.0-10.5)
[2019-09-21 18:59] LABS: ALBUMIN 4.6 g/dL (3.5-5.0); ALKALINE PHOSPHATASE 60 U/L (38-126); ASPARTATE AMINO TRANSFERASE 26 U/L (14-36); BILIRUBIN,TOTAL 0.4 mg/dL (0.2-1.3); BLOOD UREA NITROGEN 16 mg/dL (7-20); CARBON DIOXIDE 30 mmol/L (22-30); GLUCOSE 105 mg/dL (75-110); POTASSIUM 4.9 mmol/L (3.6-5.0); TOTAL PROTEIN 7.2 g/dL (6.3-8.2)
[2019-09-21 19:04] LABS: CHLORIDE 102 mmol/L (98-107)
[2019-09-21 19:05] LABS: ANION GAP 5 (5-19)
--- NOTE | 2019-09-21 19:05 | RADIOLOGY REPORT (SQ) ---
EXAM DESCRIPTION: CHEST SINGLE VIEW IMAGES COMPLETED DATE/TIME: 09/21/2019 6:38 pm REASON FOR STUDY: pain sp fall COMPARISON: 06/09/2015 TECHNIQUE: Single frontal radiographic view of the chest acquired. NUMBER OF VIEWS: One view. LIMITATIONS: None. FINDINGS: LUNGS AND PLEURA: No pneumothorax. No consolidation or pleural effusion. MEDIASTINUM AND HILAR STRUCTURES: Stable. HEART AND VASCULAR STRUCTURES: Stable. BONES: No acute findings. HARDWARE: None in the chest. OTHER: No other significant finding. IMPRESSION: NO ACUTE FINDINGS. TECHNICAL DOCUMENTATION: JOB ID: [id number] [id number] 2010 [employer]- All Rights Reserved Reading location - IP/workstation name: [email or web address]
[2019-09-21] MEDS ORDERED: METHOCARBAMOL 750 MG TABLET PO ONE (20:50)
[2019-09-21] MEDS ORDERED: HYDROCODONE/ACETAMINOPHEN 5-325 MG TABLET PO ONE (20:50)
--- NOTE | 2019-09-21 20:50 | ER Document Report ---
HPI - HPI Patient complains to provider of: back pain Time Seen by Provider: 09/21/19 17:56 Pain Level: 3 Context: This is 84-year-old female who presented to the emergency room today with left- sided subscapular discomfort which is been ongoing for about 2 days after helping a friend who is sick clean the floors. She does have palpable spasm to the subscapular area she had originally said that there may be some pain radiation but she was really kind of unsure out of an abundance of caution we did go ahead and perform an EKG which was negative as well as a cardiac marker which again was negative she has had this discomfort for multiple days and again the pain is reproducible with motion and palpable spasm. Associated Symptoms: None Exacerbated by: Movement - REPRODUCTIVE Reproductive: DENIES: : Past Medical History - General Information source: Patient - Social History Smoking Status: Never Smoker Frequency of alcohol use: None Drug Abuse: None Family History: Reviewed & Not Pertinent Patient has homicidal ideation: No - Past Medical History Cardiac Medical History: Denies: Hx Coronary Artery Disease, Hx Heart Attack, Hx Hypertension Pulmonary Medical History: Denies: Hx Asthma, Hx Bronchitis, Hx COPD, Hx Pneumonia Neurological Medical History: Denies: Hx Cerebrovascular Accident, Hx Seizures Endocrine Medical History: Reports: Hx Hypothyroidism Renal/ Medical History: Reports: Hx Kidney Stones. Denies: Hx Peritoneal Dialysis GI Medical History: Denies: Hx Hepatitis, Hx Hiatal Hernia, Hx Ulcer Musculoskeletal Medical History: Reports Hx Arthritis Infectious Medical History: Denies: Hx Hepatitis Past Surgical History: Reports: Hx Appendectomy, Hx Cholecystectomy. Denies: Hx Hysterectomy, Hx Mastectomy, Hx Open Heart Surgery, Hx Pacemaker - Immunizations Hx Diphtheria, Pertussis, Tetanus Vaccination: Yes Vertical Provider Document - CONSTITUTIONAL Agree With Documented VS: Yes - INFECTION CONTROL TRAVEL OUTSIDE OF THE [place] IN LAST 30 DAYS: No - HEENT HEENT: Atraumatic, Conjuctival Injection, Normocephalic, PERRLA - NECK Neck: Normal Inspection, Supple - RESPIRATORY Respiratory: Breath Sounds Normal, No Respiratory Distress - CARDIOVASCULAR Cardiovascular: Regular Rate, Regular Rhythm - GI/ABDOMEN Gastrointestinal: Abdomen Soft, Abdomen Non-Tender - REPRODUCTIVE Female Genitalia: Normal Inspection - BACK Back: Normal Inspection - Reproducible spasm in the subscapular area on the left. - MUSCULOSKELETAL/EXTREMETIES Musculoskeletal/Extremeties: [place] Course - Re-evaluation Re-evalutation: 09/21/19 20:47 Patient has had the same discomfort for 3 days after helping a friend clean the floor. It is reproducible with manipulation of the scapula. She has no chest pain she has no shortness of breath she has no exertional chest pain she has no exertional shortness of breath cardiac marker was negative EKG was negative patient has good follow-up will follow up with PMD Monday or Monday in the office she is aware that she should return to the emergency room immediately for absolutely any change or worsening condition. - Vital Signs Vital signs: Temp Pulse Resp BP Pulse Ox 97.8 F 70 14 172/67 H 97 09/21/19 18:05 09/21/19 17:55 09/21/19 17:55 09/21/19 17:55 09/21/19 17:55 - Laboratory Result Diagrams: 09/21/19 18:30 09/21/19 18:30 - Diagnostic Test Radiology results interpreted by me: 09/21/19 20:47 Chest X-Ray 09/21/19 18:08 IMPRESSION: NO ACUTE FINDINGS. Discharge - Discharge Clinical Impression: Muscle spasm Condition: Good Disposition: HOME, SELF-CARE Instructions: Warm Packs ([facility]), Muscle Strain ([facility]) Prescriptions: Methocarbamol [Robaxin 750 mg Tablet] 750 mg PO Q6 #30 tablet Referrals: BUCK ZURITA MD [Primary Care Provider] - Follow up as needed
== END 2019-09-21 21:00 | disposition home or self-care (01) ==
LOC: ER 17:50
DX: M62.838 Other muscle spasm (principal); M54.9 Dorsalgia, unspecified; M25.512 Pain in left shoulder
CPT/HCPCS: 99283; 36415; 85025; 80053; 84484; 71045; A9270 ×2; J3490

== ENCOUNTER 2020-01-02 12:40 | Emergency (ER) | payer MEDICARE, OTHER ==
--- NOTE | 2020-01-02 13:38 | ER Document Report ---
ED Medical Screen (RME) - General Chief Complaint: Back Pain Stated Complaint: BACK PAIN Time Seen by Provider: 01/02/20 13:32 Primary Care Provider: BCUK DE LA GARZA MD [Primary Care Provider] - Follow up as needed Mode of Arrival: Ambulatory Information source: Patient, Relative Notes: 84-year-old female presents to ED for complaint of back pain. She does have a history of degenerative disc disease and arthritis. She does see Buck De La Garza as her primary care and she goes to [facility] [place]. She is on baclofen and Celebrex both of which she took about 730 8:00 this morning. She states she has had the back pain for several days. She has had an appendectomy and a gallbladder removed. We will get blood and urine right now and have her seen by 1 of the primary doctors. The back pain goes all the way from the top to the bottom of her back. Patient is alert oriented respirations regular nonlabored and able to answer all questions at this time. She is able to ambulate with a steady gait. I have greeted and performed a rapid initial assessment of this patient. A comprehensive ED assessment and evaluation of the patient, analysis of test results and completion of medical decision making process will be conducted by an additional ED providers. TRAVEL OUTSIDE OF THE [place] IN LAST 30 DAYS: No - Related Data Allergies/Adverse Reactions: codeine [Codeine] Allergy (Mild, Verified 07/05/19 07:53) lightheaded Past Medical History - Past Medical History Cardiac Medical History: Denies: Hx Coronary Artery Disease, Hx Heart Attack, Hx Hypertension Pulmonary Medical History: Denies: Hx Asthma, Hx Bronchitis, Hx COPD, Hx Pneumonia Neurological Medical History: Denies: Hx Cerebrovascular Accident, Hx Seizures Endocrine Medical History: Reports: Hx Hypothyroidism Renal/ Medical History: Reports: Hx Kidney Stones. Denies: Hx Peritoneal Dialysis GI Medical History: Denies: Hx Hepatitis, Hx Hiatal Hernia, Hx Ulcer Musculoskeltal Medical History: Reports Hx Arthritis Infectious Medical History: Denies: Hx Hepatitis Past Surgical History: Reports: Hx Appendectomy, Hx Cholecystectomy. Denies: Hx Hysterectomy, Hx Mastectomy, Hx Open Heart Surgery, Hx Pacemaker - Immunizations Hx Diphtheria, Pertussis, Tetanus Vaccination: Yes Physical Exam - Vital signs Vitals: Temp Pulse Resp BP Pulse Ox 98.1 F 98 20 138/67 H 97 01/02/20 12:49 01/02/20 12:49 01/02/20 12:49 01/02/20 12:49 01/02/20 12:49 Course - Vital Signs Vital signs: Temp Pulse Resp BP Pulse Ox 98.1 F 98 20 138/67 H 97 01/02/20 12:49 01/02/20 12:49 01/02/20 12:49 01/02/20 12:49 01/02/20 12:49 Doctor's Discharge - Discharge Referrals: BUCK DE LA GARZA MD [Primary Care Provider] - Follow up as needed
[2020-01-02 14:08] LABS: ABSOLUTE BASOPHILS # (AUTO) 0.1 10^3/uL (0.0-0.2); ABSOLUTE EOSINOPHILS # (AUTO) 0.2 10^3/uL (0.0-0.6); ABSOLUTE LYMPHOCYTES (AUTO) 2.1 10^3/uL (0.5-4.7); ABSOLUTE MONOCYTES (AUTO) 1.1 10^3/uL (0.1-1.4); ABSOLUTE NEUT (AUTO) 4.5 10^3/uL (1.7-8.2); BASOPHILS % (AUTO) 0.8 % (0-2); EOSINOPHILS % (AUTO) 2.9 % (0-6); HEMATOCRIT 42.7 % (36.0-47.0); HEMOGLOBIN 14.6 g/dL (12.0-15.5); LYMPHOCYTES % (AUTO) 26.6 % (13-45); MEAN CORPUSCULAR HEMOGLOBIN 32.2 pg (27.0-33.4); MEAN CORPUSCULAR HGB CONC 34.2 g/dL (32.0-36.0); MEAN CORPUSCULAR VOLUME 94 fl (80-97); MONOCYTES % (AUTO) 13.5 % (3-13); PLATELET COUNT 331 10^3/uL (150-450); RED BLOOD COUNT 4.54 10^6/uL (3.72-5.28); RED CELL DISTRIBUTION WIDTH 14.5 % (11.5-14.0); SEGMENTED NEUTROPHILS % (AUTO) 56.2 % (42-78); TOTAL CELLS COUNTED % (AUTO) 100 %
[2020-01-02 14:27] LABS: ALBUMIN 4.9 g/dL (3.5-5.0); ALKALINE PHOSPHATASE 65 U/L (38-126); ANION GAP 8 (5-19); ASPARTATE AMINO TRANSFERASE 30 U/L (14-36); BILIRUBIN,DIRECT 0.3 mg/dL (0.0-0.4); BILIRUBIN,TOTAL 0.7 mg/dL (0.2-1.3); BLOOD UREA NITROGEN 11 mg/dL (7-20); CALCIUM 10.5 mg/dL (8.4-10.2); CARBON DIOXIDE 29 mmol/L (22-30); CHLORIDE 104 mmol/L (98-107); GLUCOSE 116 mg/dL (75-110); POTASSIUM 4.1 mmol/L (3.6-5.0); TOTAL PROTEIN 7.4 g/dL (6.3-8.2)
[2020-01-02 14:42] LABS: APPEARANCE,URINE SLIGHTLY-CLOUDY; BILIRUBIN,URINE NEGATIVE (NEGATIVE); COLOR,URINE YELLOW; GLUCOSE, URINE NEGATIVE (NEGATIVE); KETONES,URINE NEGATIVE (NEGATIVE); LEUKOCYTE ESTERASE,URINE TRACE (NEGATIVE); NITRITE,URINE NEGATIVE (NEGATIVE); PROTEIN,URINE 30 mg/dL (NEGATIVE); URINE SPECIFIC GRAVITY 1.008; UROBILINOGEN,URINE NEGATIVE mg/dL (<2.0)
[2020-01-02] MEDS ORDERED: FENTANYL CITRATE INJ/PF 100 MCG/2 ML AMPUL IV ONE (19:30)
--- NOTE | 2020-01-02 19:32 | ER Document Report ---
ED Neck/Back Problem - General Chief Complaint: Back Pain Stated Complaint: BACK PAIN Time Seen by Provider: 01/02/20 13:32 Primary Care Provider: BUCK ZURITA MD [Primary Care Provider] - Follow up tomorrow Mode of Arrival: Ambulatory Information source: Patient, Relative Notes: Patient presents complaining of a flareup of her chronic back pain for the past 2 weeks. Patient without any fever, urinary retention or dysuria. Patient does report constipation with last bowel movement yesterday. Patient without any recent injury. Patient reports pain is in location of her chronic back pain. TRAVEL OUTSIDE OF THE [place] IN LAST 30 DAYS: No - HPI Patient complains to provider of: Pain, Lower back Onset: Other - 2 weeks Onset: Chronic Timing: Still present, Worse Quality of pain: Achy Pain Level: 5 Associated symptoms: Constipation, Lower back pain. denies: Abdominal pain, Fever Relieved by: Nothing Similar symptoms previously: Yes Recently seen / treated by doctor: No - Related Data Allergies/Adverse Reactions: codeine [Codeine] Allergy (Mild, Verified 07/05/19 07:53) lightheaded Past Medical History - General Information source: Patient, Relative - Social History Smoking Status: Never Smoker Frequency of alcohol use: None Drug Abuse: None Lives with: Spouse/Significant other Family History: Reviewed & Not Pertinent - Past Medical History Cardiac Medical History: Denies: Hx Coronary Artery Disease, Hx Heart Attack, Hx Hypertension Pulmonary Medical History: Denies: Hx Asthma, Hx Bronchitis, Hx COPD, Hx Pneumonia Neurological Medical History: Denies: Hx Cerebrovascular Accident, Hx Seizures Endocrine Medical History: Reports: Hx Hypothyroidism Renal/ Medical History: Reports: Hx Kidney Stones. Denies: Hx Peritoneal Dialysis GI Medical History: Denies: Hx Hepatitis, Hx Hiatal Hernia, Hx Ulcer Musculoskeletal Medical History: Reports Hx Arthritis Infectious Medical History: Denies: Hx Hepatitis Past Surgical History: Reports: Hx Appendectomy, Hx Cholecystectomy - Immunizations Hx Diphtheria, Pertussis, Tetanus Vaccination: Yes Review of Systems - Review of Systems Constitutional: No symptoms reported. denies: Fever, Recent illness EENT: No symptoms reported Cardiovascular: No symptoms reported. denies: Chest pain Respiratory: No symptoms reported. denies: Cough, Short of breath Gastrointestinal: Constipation. denies: Abdominal pain, Nausea, Vomiting Genitourinary: No symptoms reported. denies: Dysuria Female Genitourinary: No symptoms reported Musculoskeletal: Back pain Skin: No symptoms reported Hematologic/Lymphatic: No symptoms reported Neurological/Psychological: No symptoms reported Physical Exam - Vital signs Vitals: Temp Pulse Resp BP Pulse Ox 98.1 F 98 20 138/67 H 97 01/02/20 12:49 01/02/20 12:49 01/02/20 12:49 01/02/20 12:49 01/02/20 12:49 - General General appearance: Alert, Anxious In distress: Mild - HEENT Head: Normocephalic, Atraumatic Eyes: Normal Nasal: Normal Mouth/Lips: Normal Mucous membranes: Normal Neck: Normal, Supple. No: Lymphadenopathy - Respiratory Respiratory status: No respiratory distress Chest status: Nontender Breath sounds: Normal. No: Rales, Rhonchi, Stridor, Wheezing Chest palpation: Normal - Cardiovascular Rhythm: Regular Heart sounds: S1 appreciated, S2 appreciated - Abdominal Inspection: Normal Distension: No distension Bowel sounds: Normal Tenderness: Nontender - Back Back: Tender - Thoracolumbar paraspinal tenderness, Vertebra tenderness - Lower thoracic midline tenderness - Extremities General upper extremity: Normal inspection, Normal strength General lower extremity: Normal inspection, Normal strength - Neurological Neuro grossly intact: Yes Cognition: Normal Angus Coma Scale Eye Opening: Spontaneous [place] Coma Scale Verbal: Oriented Angus Coma Scale Motor: Obeys Commands [place] Coma Scale Total: 15 - Psychological Associated symptoms: Anxious - Skin Skin Temperature: Warm Skin Moisture: Dry Skin Color: Normal Course - Re-evaluation Re-evalutation: 01/02/20 20:[address] report reviewed, patient without any abdominal tenderness. Patient has had some constipation although last bowel movement was yesterday. Abdomen is soft nontender. Patient continues with back pain symptoms, additional pain medication ordered at this time. 01/02/20 21:32 Patient appears more comfortable at this time, will give patient prescription for pain medication to take at home. Patient spouse encouraged to follow-up with her doctor for recheck. The patient presents with low back pain without signs of spinal cord compression, cauda equina syndrome, infection, aneurysm, or other serious etiology. The patient is neurologically intact. Given the extremely risk of these diagnoses further testing and evaluation for these possibilities does not appear to be indicated at this time. Patient has been instructed to return if the symptoms worsen or change in any way. - Vital Signs Vital signs: Temp Pulse Resp BP Pulse Ox 98.1 F 98 28 H 146/81 H 100 01/02/20 23:03 01/02/20 23:03 01/02/20 23:03 01/02/20 23:03 01/02/20 23:03 - Laboratory Result Diagrams: 01/02/20 13:54 01/02/20 13:54 Laboratory results interpreted by me: 01/02/20 01/02/20 01/02/20 13:54 13:54 13:54 RDW 14.5 H [place] % (Auto) 13.5 H Glucose 116 H Calcium 10.5 H Urine Protein 30 H Ur Leukocyte Esterase TRACE H Urine Ascorbic Acid 20 H 01/02/20 20:37 Labs- All tests 24 hr 01/02/20 01/02/20 01/02/20 13:54 13:54 13:54 WBC 8.0 RBC 4.54 Hgb 14.6 Hct 42.7 MCV 94 MCH 32.2 MCHC 34.2 RDW 14.5 H Plt Count 331 Lymph % (Auto) 26.6 [place] % (Auto) 13.5 H Eos % (Auto) 2.9 Baso % (Auto) 0.8 Absolute Neuts (auto) 4.5 Absolute Lymphs (auto) 2.1 Absolute Monos (auto) 1.1 Absolute Eos (auto) 0.2 Absolute Basos (auto) 0.1 Seg Neutrophils % 56.2 Sodium 140.6 Potassium 4.1 Chloride 104 Carbon Dioxide 29 Anion Gap 8 BUN 11 Creatinine 0.65 Est GFR ( Amer) > 60 Est GFR (MDRD) Non-Af > 60 Glucose 116 H Calcium 10.5 H Total Bilirubin 0.7 Direct Bilirubin 0.3 Neonat Total Bilirubin Not Reportable Neonat Direct Bilirubin Not Reportable Neonat Indirect Bili Not Reportable AST 30 ALT 18 Alkaline Phosphatase 65 Total Protein 7.4 Albumin 4.9 Urine Color YELLOW Urine Appearance SLIGHTLY-CLOUDY Urine pH 8.0 Ur Specific [place] 1.008 Urine Protein 30 H Urine Glucose (UA) NEGATIVE Urine Ketones NEGATIVE Urine Blood NEGATIVE Urine Nitrite NEGATIVE Urine Bilirubin NEGATIVE Urine Urobilinogen NEGATIVE Ur Leukocyte Esterase TRACE H Urine WBC (Auto) 7 Urine RBC (Auto) 1 U Hyaline Cast (Auto) 5 Squamous Epi Cells Auto 1 Urine Mucus (Auto) OCC Urine Ascorbic Acid 20 H - Diagnostic Test Radiology reviewed: Reports reviewed Discharge - Discharge Clinical Impression: Chronic back pain Qualifiers: Back pain location: thoracic back pain Back pain laterality: bilateral Qualified Code(s): M54.6 - Pain in thoracic spine Condition: Stable Disposition: HOME, SELF-CARE Instructions: Low Back Pain ([facility]), Oral Narcotic Medication ([facility]) Additional Instructions: Return immediately for any new or worsening symptoms Followup with your primary care provider, call tomorrow to make a followup appo intment Take a stool softener such as Colace [id number] as directed to help prevent any constipation symptoms due to taking the narcotic pain medication. Prescriptions: Oxycodone HCl/Acetaminophen [Percocet 5-325 mg Tablet] 1 tab PO ASDIR PRN #15 tablet PRN Reason: Referrals: BUCK ZURITA MD [Primary Care Provider] - Follow up tomorrow
--- NOTE | 2020-01-02 20:24 | RADIOLOGY REPORT (SQ) ---
EXAM DESCRIPTION: [facility]: CT ABDOMEN PELVIS WITHOUT IV CONTRAST CLINICAL HISTORY: 84 years Female; lower thoracic back/flank pain; TECHNIQUE: CT of the abdomen and pelvis without contrast. All CT scans at this facility use dose modulation, iterative reconstruction, and/or weight based dosing when appropriate to reduce radiation dose to as low as reasonably achievable. COMPARISON: CT 11/05/2018 FINDINGS: Abdomen: Stomach: No significant distention or surrounding edema. Liver:No focal lesions. No intrahepatic ductal distention. Gallbladder: Surgically absent Pancreas:Within normal limits Spleen:Within normal limits Right kidney: No calculi, largest 4 mm and lower pole, unchanged. No hydronephrosis. Left kidney:No hydronephrosis. No renal or ureteral calculi. Adrenal glands:Within normal limits Vascular structures: Scattered aortic calcifications without aneurysm. Pelvis: Small bowel: Scattered gas with minimal distention. No acute mesenteric edema. Appendix:Within normal limits Colon: Scattered diverticula. No acute pericolonic edema or colonic distention. No free intraperitoneal fluid or air. Bones: Chronic degenerative changes in the lumbar spine with multilevel facet arthropathy and disc disease. L4-L5: 2 mm anterior subluxation associated with facet arthropathy. No acute bone findings. Bladder: Unremarkable. No pelvic mass or adenopathy. Note that evaluation of the bowel and solid organs is somewhat limited due to lack of intravenous and oral contrast. IMPRESSION: 1. Nonspecific bowel gas pattern, with scattered gas but no significant distention. This may indicate a mild ileus. 2. No acute inflammatory changes 3. Unchanged right renal calculi. No hydronephrosis.
[2020-01-02] MEDS ORDERED: MORPHINE SULFATE 10 MG/ML INJ IV ONE (20:42)
[2020-01-02] MEDS ORDERED: LIDOCAINE 5% (700 MG) TRANSDERMAL ADH..PATCH TP ONE (20:42)
[2020-01-02] MEDS ORDERED: MAGNESIUM HYDROXIDE SUSP 30 ML UDCUP PO ONE (21:33)
[2020-01-02 23:04] VITALS: BP 146/81
== END 2020-01-02 23:10 | disposition home or self-care (01) ==
LOC: ER 12:40
DX: M54.6 Pain in thoracic spine (principal); M54.9 Dorsalgia, unspecified; G89.29 Other chronic pain; M54.5 Low back pain; K59.00 Constipation, unspecified; Z88.8 Allergy status to other drugs, medicaments and biological substances
CPT/HCPCS: 99285; 96374; 36415; 87086; 85025; 80053; 81001; 74176; J3010; A9270 ×2; J3490

== ENCOUNTER 2020-01-05 11:47 | Emergency (ER) | payer MEDICARE, OTHER ==
--- NOTE | 2020-01-05 12:05 | ER Document Report ---
ED Medical Screen (RME) - General Chief Complaint: Back Pain Stated Complaint: BACK PAIN Time Seen by Provider: 01/05/20 11:56 Primary Care Provider: BUCK ZURITA MD [Primary Care Provider] - Follow up as needed Mode of Arrival: Medic Information source: Patient Notes: 84-year-old female presents to ED for severe upper back pain. She was seen here Monday most of the day. She was given Toradol by EMS. She took her oxycodone and other medications listed on the EMS run straight at 9 AM this morning. states she has not been comfortable he thinks she needs to get admitted so she can get some pain control. He states she is just been miserable. Patient is alert oriented she is tachypneic and moaning. is right at her side. Her respirations are about 30-36 O2 sat was 98% and pulse was 101 quickly I have greeted and performed a rapid initial assessment of this patient. A comprehensive ED assessment and evaluation of the patient, analysis of test results and completion of medical decision making process will be conducted by an additional ED providers. TRAVEL OUTSIDE OF THE [place] IN LAST 30 DAYS: No - Related Data Allergies/Adverse Reactions: codeine [Codeine] Allergy (Mild, Verified 07/05/19 07:53) lightheaded Past Medical History - Past Medical History Cardiac Medical History: Denies: Hx Coronary Artery Disease, Hx Heart Attack, Hx Hypertension Pulmonary Medical History: Denies: Hx Asthma, Hx Bronchitis, Hx COPD, Hx Pneumonia Neurological Medical History: Denies: Hx Cerebrovascular Accident, Hx Seizures Endocrine Medical History: Reports: Hx Hypothyroidism Renal/ Medical History: Reports: Hx Kidney Stones. Denies: Hx Peritoneal Dialysis GI Medical History: Denies: Hx Hepatitis, Hx Hiatal Hernia, Hx Ulcer Musculoskeltal Medical History: Reports Hx Arthritis Infectious Medical History: Denies: Hx Hepatitis Past Surgical History: Reports: Hx Appendectomy, Hx Cholecystectomy. Denies: Hx Hysterectomy, Hx Mastectomy, Hx Open Heart Surgery, Hx Pacemaker - Immunizations Hx Diphtheria, Pertussis, Tetanus Vaccination: Yes Physical Exam - Vital signs Vitals: Temp Pulse Resp BP Pulse Ox 98.3 F 39 L 30 H 147/62 H 74 L 01/05/20 11:54 01/05/20 11:54 01/05/20 11:54 01/05/20 11:54 01/05/20 11:54 Course - Vital Signs Vital signs: Temp Pulse Resp BP Pulse Ox 98.3 F 39 L 30 H 147/62 H 74 L 01/05/20 11:54 01/05/20 11:54 01/05/20 11:54 01/05/20 11:54 01/05/20 11:54 Doctor's Discharge - Discharge Referrals: BUCK ZURITA MD [Primary Care Provider] - Follow up as needed
[2020-01-05 12:29] LABS: ABSOLUTE EOSINOPHILS # (AUTO) 0.1 10^3/uL (0.0-0.6); ABSOLUTE LYMPHOCYTES (AUTO) 2.5 10^3/uL (0.5-4.7); EOSINOPHILS % (AUTO) 1.4 % (0-6); HEMOGLOBIN 14.7 g/dL (12.0-15.5); PLATELET COUNT 277 10^3/uL (150-450); RED BLOOD COUNT 4.52 10^6/uL (3.72-5.28); TOTAL CELLS COUNTED % (AUTO) 100 %
[2020-01-05 12:46] LABS: ALBUMIN 4.6 g/dL (3.5-5.0); ALKALINE PHOSPHATASE 68 U/L (38-126); ANION GAP 11 (5-19); ASPARTATE AMINO TRANSFERASE 28 U/L (14-36); BILIRUBIN,DIRECT 0.3 mg/dL (0.0-0.4); BILIRUBIN,TOTAL 0.9 mg/dL (0.2-1.3); BLOOD UREA NITROGEN 15 mg/dL (7-20); CARBON DIOXIDE 23 mmol/L (22-30); CHLORIDE 106 mmol/L (98-107); GLUCOSE 113 mg/dL (75-110); POTASSIUM 3.9 mmol/L (3.6-5.0); TOTAL PROTEIN 7.2 g/dL (6.3-8.2)
--- NOTE | 2020-01-05 12:46 | RADIOLOGY REPORT (SQ) ---
EXAM DESCRIPTION: T SPINE AP/LAT IMAGES COMPLETED DATE/TIME: 01/05/2020 12:30 pm REASON FOR STUDY: Severe back pain seen here Monday COMPARISON: None. NUMBER OF VIEWS: Two views. TECHNIQUE: AP and lateral radiographic images acquired of the thoracic spine. LIMITATIONS: None. FINDINGS: MINERALIZATION: Normal. ALIGNMENT: Normal. No scoliosis. VERTEBRAE: No fracture or bone lesion. Maintained height, normal segmentation. DISCS: No significant loss of height or significant narrowing. No large osteophytes. HARDWARE: None in the spine. MEDIASTINUM AND SOFT TISSUES: Normal heart size and aortic contour. No soft tissue abnormality. VISUALIZED LUNG GUERRERO: Clear. OTHER: No other significant finding. IMPRESSION: NO SIGNIFICANT RADIOGRAPHIC FINDING IN THE THORACIC SPINE. TECHNICAL DOCUMENTATION: JOB ID: [id number] [email or web address]- All Rights Reserved Reading location - IP/workstation name: [email or web address]
[2020-01-05 12:53] LABS: ABSOLUTE BASOPHILS # (AUTO) 0.1 10^3/uL (0.0-0.2); ABSOLUTE MONOCYTES (AUTO) 0.8 10^3/uL (0.1-1.4); ABSOLUTE NEUT (AUTO) 3.6 10^3/uL (1.7-8.2); BASOPHILS % (AUTO) 0.8 % (0-2); HEMATOCRIT 42.1 % (36.0-47.0); LYMPHOCYTES % (AUTO) 35.5 % (13-45); MEAN CORPUSCULAR HEMOGLOBIN 32.7 pg (27.0-33.4); MEAN CORPUSCULAR VOLUME 93 fl (80-97); MONOCYTES % (AUTO) 11.7 % (3-13); RED CELL DISTRIBUTION WIDTH 14.1 % (11.5-14.0); SEGMENTED NEUTROPHILS % (AUTO) 50.6 % (42-78); WHITE BLOOD COUNT 7.1 10^3/uL (4.0-10.5)
--- NOTE | 2020-01-05 15:39 | ER Document Report ---
ED General <THIERRYIGOR DAWSON - Last Filed: 01/06/20 15:09> - General Mode of Arrival: Medic TRAVEL OUTSIDE OF THE [place] IN LAST 30 DAYS: No - Related Data Home Medications: Celecoxib, percocet, baclofen, levothyroxine <JEAN ARIZA - Last Filed: 01/08/20 22:24> - General Chief Complaint: Back Pain Stated Complaint: BACK PAIN Time Seen by Provider: 01/05/20 11:56 Primary Care Provider: BUCK ZURITA MD [Primary Care Provider] - Follow up as needed Notes: This 84-year-old woman presents to the emergency department with a complaint of abdominal pain and no bowel movement for the past 5 days. She is taking Percocet for chronic lumbar disc disease. She was seen in our emergency department on Monday for abdominal pain. States that her symptoms have continued. Her is concerned that she has become dehydrated as it has not been eating over the past 2 days. The patient is moaning and groaning and crying during this examination requesting something for the pain. (JEAN ARIZA) - Related Data Allergies/Adverse Reactions: codeine [Codeine] Allergy (Mild, Verified 07/05/19 07:53) lightheaded Past Medical History - General Information source: Patient - Social History Smoking Status: Unknown if Ever Smoked Family History: Reviewed & Not Pertinent - Past Medical History Cardiac Medical History: Denies: Hx Coronary Artery Disease, Hx Heart Attack, Hx Hypertension Pulmonary Medical History: Denies: Hx Asthma, Hx Bronchitis, Hx COPD, Hx Pneumonia Neurological Medical History: Denies: Hx Cerebrovascular Accident, Hx Seizures Endocrine Medical History: Reports: Hx Hypothyroidism Renal/ Medical History: Reports: Hx Kidney Stones. Denies: Hx Peritoneal Dialysis GI Medical History: Denies: Hx Hepatitis, Hx Hiatal Hernia, Hx Ulcer Musculoskeletal Medical History: Reports Hx Arthritis Infectious Medical History: Denies: Hx Hepatitis Past Surgical History: Reports: Hx Appendectomy, Hx Cholecystectomy. Denies: Hx Hysterectomy, Hx Mastectomy, Hx Open Heart Surgery, Hx Pacemaker - Immunizations Hx Diphtheria, Pertussis, Tetanus Vaccination: Yes <JEAN ARIZA - Last Filed: 01/08/20 22:24> Review of Systems <JEAN ARIZA - Last Filed: 01/08/20 22:24> - Review of Systems Notes: Constitutional: Negative for fever. HENT: Negative for sore throat. Eyes: Negative for visual changes. Cardiovascular: Negative for chest pain. Respiratory: Negative for shortness of breath. Gastrointestinal: See HPI Genitourinary: Negative for dysuria. Musculoskeletal: Negative for back pain. Skin: Negative for rash. Neurological: Negative for headaches, weakness or numbness. 10 point ROS negative except as marked above and in HPI. (JEAN ARIZA) Physical Exam <JEAN ARIZA - Last Filed: 01/08/20 22:24> - Vital signs Vitals: Temp Pulse Resp BP Pulse Ox 98.3 F 101 H 30 H 147/62 H 98 01/05/20 11:54 01/05/20 11:54 01/05/20 11:54 01/05/20 11:54 01/05/20 11:54 - Notes Notes: PHYSICAL EXAMINATION: Physical Exam: General: Frail elderly woman in moderate distress secondary to abdominal pain HEENT: NC/AT, pupils equal round and reactive to light, MM moist,nares clear, oropharynx clear, airway patent Neck: supple, no adenopathy, no masses. Good range of motion Lungs: clear, no wheezing, no rales no rhonchi CVS: Regular rate and rhythm no murmur gallop or rub Abdomen: Diffuse tenderness, decreased bowel sounds, firm, no obvious masses and no rebound. Ext: No edema, clubbing or cyanosis. Neuro: Alert and responsive, moving all 4 extremities on command, cranial nerves intact, no focal findings Skin: Intact no open lesions, no rash PSYCH: Normal mood, normal affect. (JEAN ARIZA) Course - Laboratory Result Diagrams: 01/05/20 15:15 01/05/20 15:15 <IGOR GUADARRAMA - Last Filed: 01/06/20 15:09> - Laboratory Result Diagrams: 01/05/20 15:15 01/05/20 15:15 - Diagnostic Test Radiology reviewed: Image reviewed, Reports reviewed <JEAN ARIZA - Last Filed: 01/08/20 22:24> - Re-evaluation Re-evalutation: 01/06/20 15:09 I have spoken with the career transition specialist and she states that the patient will be started on hospice care tomorrow. Patient is stable at this time. Patient will be discharged home. (IGOR GUADARRAMA) 01/06/20 01:05 Patient is doing much better her pain seems to be resolved and her color has improved. She is smiling and talkative. Since I have explained to the that the CT scan is negative and that there are no clinical indications for admissions to the hospital. He has requested that we keep her because he is not able to get her in the house and she is not strong enough yet. I have also offered to get transport to take her home. He says is after midnight and would like her to stay. I have explained that this will be a social hold and that she will be discharged tomorrow morning. Patient stated that he is going to go home and he can be called when it is time for her to be discharged. 01/06/20 01:10 She will need to be discharged with a bowel regimen of Colace, milk of magnesia while taking the opiates. Discussed this briefly with her and have also added this information to her discharge instructions. (JEAN ARIZA) - Vital Signs Vital signs: Temp Pulse Resp BP Pulse Ox 98.9 F 91 18 138/70 H 99 01/06/20 16:26 01/06/20 16:26 01/06/20 16:26 01/06/20 16:26 01/06/20 16:26 - Laboratory Laboratory results interpreted by pr: 01/05/20 01/05/20 01/05/20 12:18 12:18 15:15 RDW 14.1 H 14.3 H [place] % (Auto) 14.1 H Glucose 113 H Urine Ketones 01/05/20 20:15 RDW [place] % (Auto) Glucose Urine Ketones 20 H - Diagnostic Test Radiology results interpreted by me: 01/06/20 00:59 X-ray thoracic spine, no acute compression fracture, no scoliosis. X-ray abdomen KUB: No obstruction, no acute intra-abdominal findings. CT abdomen and pelvis with IV contrast: No obvious acute intra-abdominal abnormalities. History of a cholecystectomy, post cholecystectomy, biliary duct dilatation. (JEAN ARIZA) Discharge <IGOR GUADARRAMA - Last Filed: 01/06/20 15:09> <JEAN ARIZA - Last Filed: 01/08/20 22:24> - Discharge Clinical Impression: Therapeutic opioid-induced constipation (OIC) Abdominal pain Qualifiers: Abdominal location: generalized Qualified Code(s): R10.84 - Generalized abdominal pain Condition: Fair Disposition: HOME, SELF-CARE Instructions: Abdominal Pain ([facility]), Constipation ([facility]) Additional Instructions: You were seen in the emergency department with abdominal pain and no bowel movement for 5 days related to your medication use. Please begin a stool softener, Colace while taking your pain medications. If there is a 48-hour period with no bowel movement start magnesium citrate or milk of magnesia. Please discuss your pain medication regimen with your primary physician. If your symptoms are worsening or if you have other concerns you may return to the emergency department for further evaluation and treatment. HOME CARE INSTRUCTIONS & INFORMATION: Thank you for choosing us for your medical needs. We hope you're satisfied with the care you received. After you leave, you must properly care for your problem and, at the same time, observe its progress. Any condition can change. Some illnesses can change rapidly over hours or days. If your condition worsens, return to the Emergency Department or see your physician promptly. ABOUT YOUR X-RAYS AND EKG'S: If you had an EKG or X-rays taken, they have been read by the Emergency Physician. The X-rays and EKG's will also be read by a Radiologist or Woodwork Salvage Inspector within 24 hours. If discrepancies are noted, you will be notified by telephone. Please be certain the ED has a correct telephone number & address where you can be reached. Also, realize that some fractures or abnormalities do not show up on initial X-rays. If your symptoms continue, see your physician. ABOUT YOUR LABORATORY TEST: If you had laboratory tests, the results have been reviewed by the Emergency Physician. Some test results (for example cultures) may not be available for several days. You will be contacted if any test result shows you need additional treatment. Please be certain the ED has a correct telephone number and address where you can be reached. ABOUT YOUR MEDICATIONS: You will receive instructions on how to take your med icine on the prescription label you receive. Additional information may be provided by the Pharmacy. If you have questions afterwards, call the ED for clarification or further instructions. Some prescribed medications may cause drowsiness. Do not perform tasks such as driving a car or operating machinery without consulting your Pharmacist. If you feel you need a refill of pain medication, your condition will need re-evaluation. Please do not call for a refill of any medication. ABOUT YOUR SIGNATURE: Signature of this document acknowledges to followin. Understanding that you received emergency treatment and that you may be released before al medical problems are known or treated. Please be certain the ED has a correct phone number & address where you can be reached. 2. Acknowledgement that you will arrange for follow-up care as recommended. 3. Authorization for the Emergency Physician to provide information to your follow-up Physician in order to maximize your care. AT ANY TIME, IF YOUR SYMPTOMS CHANGE SIGNIFICANTLY OR WORSEN OR YOU DEVELOP NEW SYMPTOMS, RETURN TO THE EMERGENCY DEPARTMENT IMMEDIATELY FOR RE-EVALUATION. OUR GOAL IS TO PROVIDE EXCELLENT MEDICAL CARE! WE HOPE THAT WE HAVE MET YOUR EXPECTATIONS DURING YOUR EMERGENCY DEPARTMENT VISIT AND THAT YOU FEEL YOU HAVE RECEIVED EXCELLENT CARE! Referrals: BUCK ZURITA MD [Primary Care Provider] - Follow up as needed
[2020-01-05] MEDS ORDERED: NORMAL SALINE 1000 ML 1,000 ML IV ONE (15:41)
[2020-01-05] MEDS ORDERED: LORAZEPAM 0.5 MG TABLET PO ONE (15:42)
[2020-01-05] MEDS ORDERED: HYDROMORPHONE HCL INJ/PF 2 MG/ML AMPULE IV ONE (15:48)
--- NOTE | 2020-01-05 16:25 | RADIOLOGY REPORT (SQ) ---
EXAM DESCRIPTION: KUB/ABDOMEN (SINGLE VIEW) IMAGES COMPLETED DATE/TIME: 01/05/2020 4:05 pm REASON FOR STUDY: Abdominal pain COMPARISON: None. NUMBER OF VIEWS: One view. TECHNIQUE: Supine radiographic image of the abdomen acquired. LIMITATIONS: None. FINDINGS: BOWEL GAS PATTERN: Normal bowel gas pattern. No dilated loops. CALCIFICATIONS: No suspicious calcifications. SOFT TISSUES: No gross mass or suggestion of organomegaly. HARDWARE: Right upper quadrant clips. BONES: No acute fracture. No worrisome bone lesions. OTHER: No other significant finding. IMPRESSION: NO RADIOGRAPHIC EVIDENCE FOR ACUTE ABDOMINAL DISEASE. TECHNICAL DOCUMENTATION: JOB ID: [id number] 2010 [email or web address]- All Rights Reserved Reading location - IP/workstation name: [email or web address]
[2020-01-05 16:28] LABS: ABSOLUTE BASOPHILS # (AUTO) 0.1 10^3/uL (0.0-0.2); ABSOLUTE MONOCYTES (AUTO) 1.4 10^3/uL (0.1-1.4); ABSOLUTE NEUT (AUTO) 6.6 10^3/uL (1.7-8.2); BASOPHILS % (AUTO) 0.7 % (0-2); EOSINOPHILS % (AUTO) 0.4 % (0-6); HEMATOCRIT 39.7 % (36.0-47.0); HEMOGLOBIN 13.9 g/dL (12.0-15.5); LYMPHOCYTES % (AUTO) 19.4 % (13-45); MEAN CORPUSCULAR HEMOGLOBIN 32.4 pg (27.0-33.4); MEAN CORPUSCULAR VOLUME 92 fl (80-97); MONOCYTES % (AUTO) 14.1 % (3-13); PLATELET COUNT 275 10^3/uL (150-450); RED BLOOD COUNT 4.29 10^6/uL (3.72-5.28); RED CELL DISTRIBUTION WIDTH 14.3 % (11.5-14.0); SEGMENTED NEUTROPHILS % (AUTO) 65.4 % (42-78); TOTAL CELLS COUNTED % (AUTO) 100 %; WHITE BLOOD COUNT 10.2 10^3/uL (4.0-10.5)
[2020-01-05 16:48] LABS: ALBUMIN 4.6 g/dL (3.5-5.0); ALKALINE PHOSPHATASE 72 U/L (38-126); ANION GAP 10 (5-19); ASPARTATE AMINO TRANSFERASE 29 U/L (14-36); BILIRUBIN,DIRECT 0.2 mg/dL (0.0-0.4); BILIRUBIN,TOTAL 0.9 mg/dL (0.2-1.3); BLOOD UREA NITROGEN 18 mg/dL (7-20); CALCIUM 10.1 mg/dL (8.4-10.2); CARBON DIOXIDE 22 mmol/L (22-30); CHLORIDE 107 mmol/L (98-107); GLUCOSE 109 mg/dL (75-110); POTASSIUM 4.5 mmol/L (3.6-5.0); TOTAL PROTEIN 7.1 g/dL (6.3-8.2)
[2020-01-05 20:45] LABS: APPEARANCE,URINE CLEAR; BILIRUBIN,URINE NEGATIVE (NEGATIVE); COLOR,URINE YELLOW; GLUCOSE, URINE NEGATIVE (NEGATIVE); KETONES,URINE 20 mg/dL (NEGATIVE); LEUKOCYTE ESTERASE,URINE NEGATIVE (NEGATIVE); NITRITE,URINE NEGATIVE (NEGATIVE); PROTEIN,URINE NEGATIVE (NEGATIVE); URINE SPECIFIC GRAVITY 1.011; UROBILINOGEN,URINE NEGATIVE mg/dL (<2.0)
--- NOTE | 2020-01-05 23:56 | RADIOLOGY REPORT (SQ) ---
EXAM DESCRIPTION: CT ABDOMEN PELVIS WITH IV CONTRAST COMPLETED DATE/TME: 01/05/2020 22:39 CLINICAL HISTORY: 84 years Female Diffuse abdominal pain COMPARISON: 01/02/2020. TECHNIQUE: Contiguous axial images obtained through the abdomen and pelvis following IV contrast. Reformatted images obtained. This exam was performed according to our department optimization program which includes automated exposure control, adjustment of the mA and/or kv according to patient size and/or use of iterative reconstruction technique. FINDINGS: The liver appears unremarkable. The spleen and pancreas appear unremarkable. No adrenal masses. Nonobstructing right renal calculi. No hydronephrosis or obstructive uropathy. The gallbladder is absent. There is biliary ductal dilatation likely a normal post cholecystectomy finding. No aneurysmal dilatation of the aorta. No bowel obstruction. The appendix is not clearly seen.. No significant free fluid noted. IMPRESSION: Biliary ductal dilatation likely as a result of cholecystectomy changes, however it appears slightly more prominent than on previous noncontrast exams. Recommend clinical correlation with laboratory values. If there is concern for obstruction MRCP could be acquired Nonobstructing right renal stones
--- NOTE | 2020-01-06 10:00 | ER Document Report ---
Doctor's Note Notes: 01/06/20 09:59 Patient was seen on morning rounds. Patient is at baseline and her at bedside patient has no complaints or requests at this time. Social work is still working on possible placement.
[2020-01-06 16:29] VITALS: BP 138/70
== END 2020-01-06 16:25 | disposition home or self-care (01) ==
LOC: ER 11:47
DX: K59.03 Drug induced constipation (principal); R10.84 Generalized abdominal pain; M54.6 Pain in thoracic spine; Z87.442 Personal history of urinary calculi; Z90.49 Acquired absence of other specified parts of digestive tract
CPT/HCPCS: 99285; 96361; 51701; 96374; 36415; 85025; 87070; 80053; 81001; 74018; 72070; 74177; J1170; J7030; A9270

== ENCOUNTER 2020-04-29 19:24 | Emergency (ER) | payer MEDICARE, OTHER ==
--- NOTE | 2020-04-29 21:41 | ER Document Report ---
ED Medical Screen (RME) - General Chief Complaint: Back Pain Stated Complaint: SEVERE BACK PAIN Time Seen by Provider: 04/29/20 21:36 Primary Care Provider: BUCK ZURITA MD [Primary Care Provider] - Follow up as needed TRAVEL OUTSIDE OF THE [place] IN LAST 30 DAYS: No - HPI Notes: Patient is a 84-year-old female with medical history of chronic low back pain who presents with right thoracic back pain that began around 4:30 PM this afternoon. Patient describes her pain as sharp and severe and much worse than her usual lower back pain. She denies chest pain, shortness of breath, abdominal pain, vomiting, fever, and dysuria. Patient currently takes Percocet, diclofenac, and gabapentin for her lower back pain which has provided no relief today. - Related Data Allergies/Adverse Reactions: codeine [Codeine] Allergy (Mild, Verified 07/05/19 07:53) lightheaded Past Medical History - Past Medical History Cardiac Medical History: Denies: Hx Coronary Artery Disease, Hx Heart Attack, Hx Hypertension Pulmonary Medical History: Denies: Hx Asthma, Hx Bronchitis, Hx COPD, Hx Pneumonia Neurological Medical History: Denies: Hx Cerebrovascular Accident, Hx Seizures Endocrine Medical History: Reports: Hx Hypothyroidism Renal/ Medical History: Reports: Hx Kidney Stones. Denies: Hx Peritoneal Dialysis GI Medical History: Denies: Hx Hepatitis, Hx Hiatal Hernia, Hx Ulcer Musculoskeltal Medical History: Reports Hx Arthritis Infectious Medical History: Denies: Hx Hepatitis Past Surgical History: Reports: Hx Appendectomy, Hx Cholecystectomy. Denies: Hx Hysterectomy, Hx Mastectomy, Hx Open Heart Surgery, Hx Pacemaker - Immunizations Hx Diphtheria, Pertussis, Tetanus Vaccination: Yes Physical Exam - Vital signs Vitals: Temp Pulse Resp BP Pulse Ox 97.8 F 76 20 126/67 H 100 04/29/20 19:54 04/29/20 19:54 04/29/20 19:54 04/29/20 19:54 04/29/20 19:54 - Back Back: CVA tenderness - right. No: Deformity/step-off, Vertebra tenderness Course - Re-evaluation Re-evalutation: I have greeted and performed a rapid initial assessment of this patient. A comprehensive ED assessment and evaluation of the patient, analysis of test results and completion of medical decision making process will be conducted by an additional ED providers. - Vital Signs Vital signs: Temp Pulse Resp BP Pulse Ox 97.8 F 76 20 126/67 H 100 04/29/20 19:54 04/29/20 19:54 04/29/20 19:54 04/29/20 19:54 04/29/20 19:54 Doctor's Discharge - Discharge Referrals: BUCK ZURITA MD [Primary Care Provider] - Follow up as needed
[2020-04-29 22:24] LABS: ALBUMIN 4.4 g/dL (3.5-5.0); ALKALINE PHOSPHATASE 57 U/L (38-126); ANION GAP 7 (5-19); ASPARTATE AMINO TRANSFERASE 33 U/L (14-36); BILIRUBIN,DIRECT 0.2 mg/dL (0.0-0.4); BILIRUBIN,TOTAL 0.6 mg/dL (0.2-1.3); BLOOD UREA NITROGEN 26 mg/dL (7-20); CARBON DIOXIDE 25 mmol/L (22-30); CHLORIDE 106 mmol/L (98-107); GLUCOSE 108 mg/dL (75-110)
[2020-04-29 22:27] LABS: ABSOLUTE EOSINOPHILS # (AUTO) 0.1 10^3/uL (0.0-0.6); ABSOLUTE LYMPHOCYTES (AUTO) 1.8 10^3/uL (0.5-4.7); ABSOLUTE MONOCYTES (AUTO) 0.7 10^3/uL (0.1-1.4); ABSOLUTE NEUT (AUTO) 3.3 10^3/uL (1.7-8.2); BASOPHILS % (AUTO) 0.7 % (0-2); EOSINOPHILS % (AUTO) 1.2 % (0-6); HEMOGLOBIN 12.6 g/dL (12.0-15.5); LYMPHOCYTES % (AUTO) 30.2 % (13-45); MEAN CORPUSCULAR HEMOGLOBIN 31.2 pg (27.0-33.4); MEAN CORPUSCULAR HGB CONC 34.9 g/dL (32.0-36.0); MEAN CORPUSCULAR VOLUME 89 fl (80-97); MONOCYTES % (AUTO) 12.1 % (3-13); PLATELET COUNT 263 10^3/uL (150-450); RED BLOOD COUNT 4.02 10^6/uL (3.72-5.28); RED CELL DISTRIBUTION WIDTH 12.5 % (11.5-14.0); SEGMENTED NEUTROPHILS % (AUTO) 55.8 % (42-78); TOTAL CELLS COUNTED % (AUTO) 100 %; WHITE BLOOD COUNT 5.9 10^3/uL (4.0-10.5)
[2020-04-29] MEDS ORDERED: OXYCODONE HCL IR 5 MG TABLET PO ONE (22:55)
--- NOTE | 2020-04-30 00:28 | RADIOLOGY REPORT (SQ) ---
CT angiogram chest, abdomen and pelvis with contrast on 04/29/2020 at 11:39 PM CLINICAL INDICATION: Severe back pain, concern for aortic dissection TECHNIQUE: Multiple axial images are obtained throughout the chest, abdomen and pelvis following the administration of IV contrast. Computer generated 3D reconstructions/MIPS were performed. This exam was performed according to our departmental dose-optimization program, which includes automated exposure control, adjustment of the mA and/or kV according to patient size and/or use of iterative reconstruction technique. Total DLP is 967.19 mGy*cm. COMPARISON: CT abdomen and pelvis from 01/05/2020 FINDINGS: Breathing motion limits some of the exam. CHEST: There is no thoracic aortic aneurysm or dissection. There are three great vessels originating off the aortic arch without stenosis of the proximal great vessels. There is no pleural or pericardial effusion. There is no thoracic adenopathy. There is minimal basilar atelectasis and/or scarring. The lungs are otherwise clear. There are no filling defects within the pulmonary arteries to suggest a pulmonary embolus. No acute bony abnormality is noted of the thorax. ABDOMEN: There is no abdominal aortic aneurysm or dissection. Mild calcified plaque is noted in the abdominal aorta. The celiac, SMA and LARISA are patent and unremarkable. There are two left renal arteries and a single right renal artery with no significant renal artery stenosis. The patient is status post cholecystectomy. The solid abdominal organs are otherwise unremarkable. There is no abdominal adenopathy. There is no free fluid or free air within the abdomen. Mild increased stool in the colon may represent mild constipation. The abdominal portion of the GI tract is otherwise unremarkable. Pelvis: Pelvic organs appear unremarkable by CT. There is no free fluid in the pelvis. There is no pelvic adenopathy. No iliac or proximal femoral arterial disease is noted. The pelvic portion of the GI tract is unremarkable. Degenerative changes are noted in the spine. There is grade 1 spondylolisthesis of L4/5 secondary to degenerative facet disease. No acute bony abnormality is noted. IMPRESSION: 1. No evidence of thoracic or abdominal aortic aneurysm or dissection and no evidence of pulmonary embolus. 2. No acute abnormality in the chest, abdomen or pelvis.
[2020-04-30 00:32] LABS: APPEARANCE,URINE SLIGHTLY-CLOUDY; BILIRUBIN,URINE NEGATIVE (NEGATIVE); COLOR,URINE YELLOW; GLUCOSE, URINE NEGATIVE (NEGATIVE); KETONES,URINE 20 mg/dL (NEGATIVE); LEUKOCYTE ESTERASE,URINE LARGE (NEGATIVE); NITRITE,URINE POSITIVE (NEGATIVE); PROTEIN,URINE NEGATIVE (NEGATIVE); URINE SPECIFIC GRAVITY 1.031; UROBILINOGEN,URINE NEGATIVE mg/dL (<2.0)
[2020-04-30] MEDS ORDERED: CEFTRIAXONE INJ 1000 MG VIAL IV ONE (02:11)
[2020-04-30] MEDS ORDERED: NORMAL SALINE 500 ML IV ONE (02:13)
--- NOTE | 2020-04-30 04:05 | ER Document Report ---
ED General - General Chief Complaint: Flank Pain Stated Complaint: SEVERE BACK PAIN Time Seen by Provider: 04/29/20 21:36 Primary Care Provider: BUCK ZURITA MD [Primary Care Provider] - Follow up in 3-5 days Notes: 84-year-old female history of chronic low back pain times years on chronic opioids, kidney stones, frequent UTIs presents with approximately 1 day of right flank pain without radiation associated with urinary frequency and urgency. Patient has not had any urine infections in the past several months. Patient and deny any hematuria, fever, vomiting, confusion, weakness, change in ability to perform ADLs, midline back pain, recent procedures/instrumentation, immunocompromise history, prior treatment for current symptoms, recent hospitalizations/antibiotics/chest pain/trauma, change in p.o. intake TRAVEL OUTSIDE OF THE [place] IN LAST 30 DAYS: No - Related Data Allergies/Adverse Reactions: codeine [Codeine] Allergy (Mild, Verified 07/05/19 07:53) lightheaded Past Medical History - General Information source: Patient, Relative - Social History Smoking Status: Never Smoker Chew tobacco use (# tins/day): No Drug Abuse: None Family History: Reviewed & Not Pertinent - Past Medical History Cardiac Medical History: Denies: Hx Coronary Artery Disease, Hx Heart Attack, Hx Hypertension Pulmonary Medical History: Denies: Hx Asthma, Hx Bronchitis, Hx COPD, Hx Pneumonia Neurological Medical History: Denies: Hx Cerebrovascular Accident, Hx Seizures Endocrine Medical History: Reports: Hx Hypothyroidism Renal/ Medical History: Reports: Hx Kidney Stones. Denies: Hx Peritoneal Dialysis GI Medical History: Denies: Hx Hepatitis, Hx Hiatal Hernia, Hx Ulcer Musculoskeletal Medical History: Reports Hx Arthritis Infectious Medical History: Denies: Hx Hepatitis Past Surgical History: Reports: Hx Appendectomy, Hx Cholecystectomy. Denies: Hx Hysterectomy, Hx Mastectomy, Hx Open Heart Surgery, Hx Pacemaker - Immunizations Hx Diphtheria, Pertussis, Tetanus Vaccination: Yes Review of Systems - Review of Systems Notes: REVIEW OF SYSTEMS: CONSTITUTIONAL : Denies fever, chills, or sweats. EENT: Denies recent cold/sinus symptoms, denies throat pain CARDIOVASCULAR: Denies chest pain, JEFF RESPIRATORY: Denies cough, denies shortness of breath. GASTROINTESTINAL: Denies abdominal pain, nausea/vomiting. GENITOURINARY: Denies difficulty urinating, +painful urination. FEMALE GENITOURINARY: Denies abnormal vaginal bleeding, vaginal discharge. MUSCULOSKELETAL: Denies neck pain, +back pain. SKIN: Denies rash or skin lesions. HEMATOLOGIC : Denies easy bruising or bleeding. LYMPHATIC: Denies swollen, enlarged glands. NEUROLOGICAL: Denies headache, denies change in gait. PSYCHIATRIC: Denies anxiety or stress or depression. Physical Exam - Vital signs Vitals: Temp Pulse Resp BP Pulse Ox 97.8 F 76 20 126/67 H 100 04/29/20 19:54 04/29/20 19:54 04/29/20 19:54 04/29/20 19:54 04/29/20 19:54 - Notes Notes: PHYSICAL EXAMINATION: GENERAL: Uncomfortable but nontoxic-appearing elderly woman lying in stretcher in no acute distress HEAD: Atraumatic, normocephalic. EYES: Pupils equal round and appropriate constriction, sclera anicteric, conj unctiva are normal. ENT: nares patent, moist mucous membranes. NECK/BACK: Normal range of motion, supple without lymphadenopathy, no midline spinal tenderness or deformity LUNGS: Breath sounds clear to auscultation bilaterally and equal. No wheezes rales or rhonchi. HEART: Regular rate and rhythm without murmurs ABDOMEN: Soft, nontender, no guarding, no masses, +right CVA tenderness EXTREMITIES: Normal range of motion, no pitting or edema. No cyanosis. NEUROLOGICAL: Awake, alert, conversing appropriately, moves all extremities spontaneously. PSYCH: Normal mood, normal affect. SKIN: Warm, Dry, normal turgor, no rashes or lesions noted. Course - Re-evaluation Re-evalutation: 04/30/20 04:39 Patient initially in severe pain so CTA aortic dissection protocol was ordered given patient's age with flank pain, this did not show any dissection and did not show any signs of obstructive stone. Patient with right CVA tenderness with urinary symptoms for 1 day. Patient otherwise feels well, is tolerating p.o., has had no mental status changes, and no systemic symptoms. Pain is well controlled now. Patient is well-appearing on my exam, has normal vital signs, is afebrile, and no other concerning findings on exam. Patient's BUN mildly elevated so I gave small fluid bolus, but patient is able to increase p.o. intake at home to compensate for increased insensible losses due to pain and infection. Patient's urine is positive for nitrite and LE consistent with likely E. coli pyelonephritis. Patient has had previous positive cultures for E. coli which have been pansensitive. Despite patient's age, she is, early in her symptom course, is very well-appearing, has normal vitals, and has a who is capable of taking care of her at home and therefore trial of p.o. antibiotics at home after 1 dose parenteral antibiotics in the ED is appropriate plan for this patient. feels comfortable with this plan and says he will call the urologist tomorrow to arrange prompt follow-up and that he is always able to get her in quickly when she has issues. Gave extensive return to ED precautions which he demonstrated understanding of. - Vital Signs Vital signs: Temp Pulse Resp BP Pulse Ox 97.8 F 67 18 142/57 H 99 04/30/20 04:50 04/30/20 04:50 04/30/20 04:50 04/30/20 04:50 04/30/20 04:50 - Laboratory Results Result Diagrams: 04/29/20 22:00 04/29/20 22:00 Laboratory Results Interpreted: 04/29/20 04/30/20 22:00 00:20 BUN 26 H Urine Ketones 20 H Urine Nitrite POSITIVE H Ur Leukocyte Esterase LARGE H Urine Ascorbic Acid 20 H Critical Laboratory Results Reviewed: No Critical Results - Radiology Results Critical Radiology Results Reviewed: No Critical Results Discharge - Discharge Clinical Impression: Pyelonephritis Disposition: HOME, SELF-CARE Additional Instructions: Pyelonephritis Your evaluation shows evidence of pyelonephritis. This is an infection in the kidney. Typical symptoms are fever, pain in the flank, pain on urination, and frequent urination. Many cases of pyelonephritis can be treated at home. Hospital care may be necessary for patients who are very ill. Pyelonephritis is treated with antibiotics. Be sure to take all the medication as prescribed. Drink plenty of liquids (about three quarts per day). You may take acetaminophen for fever. You should feel significantly improved within two days. Return for a re-examination if your symptoms worsen in any way -- such as high fever, shaking chills, severe weakness or dizziness, severe pain, or inability to pass your urine. Take all antibiotics as prescribed. Increase water/liquid intake over the next few days. Follow-up with your urologist within 3 days. If you do not have improvement of your symptoms after 2 days on antibiotics or any point have any worsening symptoms including worsening pain, fever, vomiting, confusion, dizziness, weakness, fainting, inability to urinate, or any other worsening or alarming symptoms return to the emergency department immediately. Prescriptions: Ciprofloxacin HCl [Cipro 500 mg Tablet] 500 mg PO BID 10 Days #20 tablet Referrals: BUCK ZURITA MD [Primary Care Provider] - Follow up in 3-5 days
[2020-04-30 04:51] VITALS: BP 142/57
== END 2020-04-30 04:51 | disposition home or self-care (01) ==
LOC: ER 19:24
DX: N12 Tubulo-interstitial nephritis, not specified as acute or chronic (principal); M54.5 Low back pain; G89.29 Other chronic pain; Z79.891 Long term (current) use of opiate analgesic; Z87.442 Personal history of urinary calculi; Z88.6 Allergy status to analgesic agent; Z88.5 Allergy status to narcotic agent
CPT/HCPCS: 99285; 96365; 36415; 87086; 85025; 87088; 80053; 81001; 87186; 71275; 74174; J0696; J7040; A9270

== ENCOUNTER 2020-05-05 06:34 | Emergency (ER) | payer MEDICARE, OTHER ==
[2020-05-05 07:51] LABS: APPEARANCE,URINE CLEAR; BILIRUBIN,URINE NEGATIVE (NEGATIVE); COLOR,URINE STRAW; GLUCOSE, URINE NEGATIVE (NEGATIVE); KETONES,URINE NEGATIVE (NEGATIVE); LEUKOCYTE ESTERASE,URINE NEGATIVE (NEGATIVE); NITRITE,URINE NEGATIVE (NEGATIVE); PROTEIN,URINE NEGATIVE (NEGATIVE); URINE SPECIFIC GRAVITY 1.009; UROBILINOGEN,URINE NEGATIVE mg/dL (<2.0)
[2020-05-05] MEDS ORDERED: MORPHINE SULFATE 10 MG/ML INJ IM ONE ×2 (09:34→11:18)
--- NOTE | 2020-05-05 09:47 | ER Document Report ---
ED General - General Chief Complaint: Back Pain Stated Complaint: BACK PAIN Time Seen by Provider: 05/05/20 09:05 Primary Care Provider: BUCK ZURITA MD [Primary Care Provider] - Follow up as needed Information source: Patient, Relative - TRAVEL OUTSIDE OF THE [place] IN LAST 30 DAYS: No - HPI Notes: Patient has a long history of chronic back pain. She presents today with a worsening of her chronic back pain. No no new injury. Patient was seen here proxy 1 week ago for similar symptoms at that time was diagnosed with a urinary tract infection. At that time she did have a negative CT scan. Patient has been taking the ciprofloxacin. Patient has also been taking her chronic opioids and has had no relief at home. No new falls or trauma. No new fevers. No vomiting or diarrhea. Patient describes the pain is severe and constant. Is located in the central lower back. It will randomly radiate to one leg or the other and cause some leg tremors. She has some chronic constipation from her opioids but no new problems with bowels or bladder. No new numbness. - Related Data Allergies/Adverse Reactions: codeine [Codeine] Allergy (Mild, Verified 07/05/19 07:53) lightheaded Home Medications: Cipro. Gabapentin Past Medical History - General Information source: Patient - Social History Smoking Status: Never Smoker Frequency of alcohol use: None Drug Abuse: None Family History: Reviewed & Not Pertinent - Past Medical History Cardiac Medical History: Denies: Hx Coronary Artery Disease, Hx Heart Attack, Hx Hypertension Pulmonary Medical History: Denies: Hx Asthma, Hx Bronchitis, Hx COPD, Hx Pneumonia Neurological Medical History: Denies: Hx Cerebrovascular Accident, Hx Seizures Endocrine Medical History: Reports: Hx Hypothyroidism Renal/ Medical History: Reports: Hx Kidney Stones. Denies: Hx Peritoneal Dialysis GI Medical History: Denies: Hx Hepatitis, Hx Hiatal Hernia, Hx Ulcer Musculoskeletal Medical History: Reports Hx Arthritis Infectious Medical History: Denies: Hx Hepatitis Past Surgical History: Reports: Hx Appendectomy, Hx Cholecystectomy. Denies: Hx Hysterectomy, Hx Mastectomy, Hx Open Heart Surgery, Hx Pacemaker - Immunizations Hx Diphtheria, Pertussis, Tetanus Vaccination: Yes Review of Systems - Review of Systems Constitutional: denies: Chills, Fever Cardiovascular: denies: Chest pain, Palpitations Respiratory: denies: Cough, Short of breath -: Yes All other systems reviewed and negative Physical Exam - Vital signs Vitals: Temp Pulse Resp BP Pulse Ox 98.0 F 76 20 145/68 H 100 05/05/20 06:52 05/05/20 06:52 05/05/20 06:52 05/05/20 06:52 05/05/20 06:52 Interpretation: Normal - General General appearance: Appears well, Alert - HEENT Head: Normocephalic, Atraumatic Eyes: Normal Pupils: PERRL - Respiratory Respiratory status: No respiratory distress Chest status: Nontender Breath sounds: Normal Chest palpation: Normal - Cardiovascular Rhythm: Regular Heart sounds: Normal auscultation Murmur: No - Abdominal Inspection: Normal Distension: No distension Bowel sounds: Normal Tenderness: Nontender Organomegaly: No organomegaly - Back Back: Tender - Central lumbar spine diffusely. No: Deformity/step-off - Extremities General upper extremity: Normal inspection, Nontender, Normal color, Normal ROM, Normal temperature General lower extremity: Normal inspection, Nontender, Normal color, Normal ROM, Normal temperature, Normal weight bearing. No: [place]'s sign - Neurological Neuro grossly intact: Yes Cognition: Normal Angus Coma Scale Eye Opening: Spontaneous Angus Coma Scale Verbal: Oriented [place] Coma Scale Motor: Obeys Commands Angus Coma Scale Total: 15 Speech: Normal Sensory: Normal - Psychological Associated symptoms: Anxious, Tearful - Skin Skin Temperature: Warm Skin Moisture: Dry Skin Color: Normal Course - Re-evaluation Re-evalutation: 05/05/20 14:30 Patient reassessed this now. She feels much better. She is sitting up and eating supper with her . states they do have a history of having home health however the canceled it a little while back. He states he still has the numbers and he can call to get reinstituted when he goes home. I will also try to obtain a social work consult before the patient leaves to help them get this organized. I do not see any evidence of any acute process that would require further evaluation or treatment in the emergency department or hospital. - Vital Signs Vital signs: Temp Pulse Resp BP Pulse Ox 98.0 F 76 20 145/68 H 100 05/05/20 06:52 05/05/20 06:52 05/05/20 06:52 05/05/20 06:52 05/05/20 06:52 - Laboratory Results Result Diagrams: 05/05/20 12:54 05/05/20 12:54 Laboratory Results Interpreted: 05/05/20 05/05/20 12:54 12:54 RBC 3.60 L Hgb 11.1 L Hct 31.9 L Chloride 108 H Anion Gap 4 L Total Protein 6.1 L Critical Laboratory Results Reviewed: No Critical Results - Radiology Results Critical Radiology Results Reviewed: No Critical Results Discharge - Discharge Clinical Impression: Back pain Qualifiers: Back pain location: low back pain Chronicity: acute Back pain laterality: bilateral Sciatica presence: without sciatica Qualified Code(s): M54.5 - Low back pain Condition: Stable Disposition: HOME, SELF-CARE Instructions: Low Back Pain ([facility]) Referrals: BUCK ZURITA MD [Primary Care Provider] - Follow up in 3-5 days
[2020-05-05 13:14] LABS: ABSOLUTE BASOPHILS # (AUTO) 0.1 10^3/uL (0.0-0.2); ABSOLUTE EOSINOPHILS # (AUTO) 0.1 10^3/uL (0.0-0.6); ABSOLUTE LYMPHOCYTES (AUTO) 1.6 10^3/uL (0.5-4.7); ABSOLUTE MONOCYTES (AUTO) 0.7 10^3/uL (0.1-1.4); ABSOLUTE NEUT (AUTO) 2.9 10^3/uL (1.7-8.2); BASOPHILS % (AUTO) 1.4 % (0-2); EOSINOPHILS % (AUTO) 1.8 % (0-6); HEMATOCRIT 31.9 % (36.0-47.0); HEMOGLOBIN 11.1 g/dL (12.0-15.5); LYMPHOCYTES % (AUTO) 29.9 % (13-45); MEAN CORPUSCULAR HEMOGLOBIN 30.9 pg (27.0-33.4); MEAN CORPUSCULAR HGB CONC 34.8 g/dL (32.0-36.0); MEAN CORPUSCULAR VOLUME 89 fl (80-97); MONOCYTES % (AUTO) 12.9 % (3-13); PLATELET COUNT 219 10^3/uL (150-450); RED CELL DISTRIBUTION WIDTH 12.3 % (11.5-14.0); TOTAL CELLS COUNTED % (AUTO) 100 %; WHITE BLOOD COUNT 5.3 10^3/uL (4.0-10.5)
[2020-05-05 13:24] LABS: ALBUMIN 3.7 g/dL (3.5-5.0); ALKALINE PHOSPHATASE 48 U/L (38-126); ASPARTATE AMINO TRANSFERASE 31 U/L (14-36); BILIRUBIN,DIRECT 0.1 mg/dL (0.0-0.4); BILIRUBIN,TOTAL 0.7 mg/dL (0.2-1.3); BLOOD UREA NITROGEN 18 mg/dL (7-20); CALCIUM 9.3 mg/dL (8.4-10.2); CARBON DIOXIDE 26 mmol/L (22-30); GLUCOSE 97 mg/dL (75-110); POTASSIUM 4.1 mmol/L (3.6-5.0); TOTAL PROTEIN 6.1 g/dL (6.3-8.2)
[2020-05-05 13:29] LABS: CHLORIDE 108 mmol/L (98-107)
--- NOTE | 2020-05-05 13:34 | RADIOLOGY REPORT (SQ) ---
EXAM DESCRIPTION: L SPINE 2 VIEWS IMAGES COMPLETED DATE/TIME: 05/05/2020 1:19 pm REASON FOR STUDY: pain COMPARISON: None. NUMBER OF VIEWS: Two views. TECHNIQUE: AP and lateral radiographic images acquired of the lumbar spine. LIMITATIONS: None. FINDINGS: MINERALIZATION: Normal. SEGMENTATION: Normal. No transitional anatomy. ALIGNMENT: Mild grade 1 anterolisthesis of L4 on L5. VERTEBRAE: Maintained height. No fracture or worrisome bone lesion. DISCS: Mild disc narrowing at L3-4 and L4-5. POSTERIOR ELEMENTS: Hypertrophic facet changes from L3-S1. HARDWARE: None in the spine. PARASPINAL SOFT TISSUES: Normal. PELVIS: Intact as visualized. No fractures or worrisome bone lesions. SI joints intact. OTHER: No other significant finding. IMPRESSION: Mild anterolisthesis of L4 on L5. Degenerative disc disease. Facet arthropathy. TECHNICAL DOCUMENTATION: JOB ID: [id number] 2010 [employer]- All Rights Reserved Reading location - IP/workstation name: [email or web address]
[2020-05-05 13:36] LABS: ANION GAP 4 (5-19)
[2020-05-05] MEDS ORDERED: HYDROMORPHONE HCL INJ/PF 2 MG/ML AMPULE IV ONE (13:44)
[2020-05-05 15:28] VITALS: BP 134/63
== END 2020-05-05 16:18 | disposition home or self-care (01) ==
LOC: ER 06:34
DX: M54.5 Low back pain (principal); G89.29 Other chronic pain; K59.03 Drug induced constipation; T40.2X5A Adverse effect of other opioids, initial encounter; N39.0 Urinary tract infection, site not specified; Z79.891 Long term (current) use of opiate analgesic; Z79.899 Other long term (current) drug therapy; Z88.6 Allergy status to analgesic agent; Z88.5 Allergy status to narcotic agent
CPT/HCPCS: 99284; 96372; 96374; 36415; 87086; 85025; 80053; 81001; 72100; J2270; J1170